=== PATIENT | female | born 1980 | race Caucasian/White ===

== ENCOUNTER 2018-05-02 10:53 | Outpatient (CLI) | payer BC ==
[2018-05-02 11:38] VITALS: BP 147/91
[2018-05-02 11:59] VITALS: BP 145/92
== END 2018-05-02 12:00 | disposition home or self-care (01) ==
LOC: WSo 10:53
PROVIDERS: ATTEND Obstetrics & Gynecology
DX: Z31.82 Encounter for Rh incompatibility status (principal)
CPT/HCPCS: 96372

== ENCOUNTER → 2018-06-05 | Outpatient (CLI) | payer BC ==
[~2018-06-05] MED LIST: DOCU100C37 PO; FLUO40CA12 PO; IBUP-1780 PO; OXYC-465 PO
== END ==
LOC: LABNPT 14:36
PROVIDERS: ATTEND Obstetrics & Gynecology
DX: O14.02 Mild to moderate pre-eclampsia, second trimester (principal)
CPT/HCPCS: 82570; 84156

== ENCOUNTER → 2018-06-07 | Outpatient (CLI) | payer BC, MEDICAID | LOC: LABNPT 10:53 | PROVIDERS: ATTEND Obstetrics & Gynecology | DX: O28.8 Other abnormal findings on antenatal screening of mother (principal) | CPT/HCPCS: 82570; 84156 ==

== ENCOUNTER → 2018-06-14 | Outpatient (CLI) | payer BC, MEDICAID | LOC: LABNPT 11:25 | PROVIDERS: ATTEND Obstetrics & Gynecology | DX: O28.8 Other abnormal findings on antenatal screening of mother (principal) | CPT/HCPCS: 82570; 84156 ==

== ENCOUNTER 2018-06-18 09:47 | Outpatient (CLI) | payer BC, MEDICAID ==
[~2018-06-18] VITALS: Ht 175.3 cm; Wt 124.3 kg
[2018-06-18 09:56] VITALS: BP 126/80
[2018-06-18] MEDS ORDERED: FLUO40CA12 PO (10:04)
[2018-06-23] MEDS ORDERED: OXYC-465 PO (08:08)
[2018-06-23] MEDS ORDERED: IBUP-1780 PO (08:08)
[2018-06-23] MEDS ORDERED: DOCU100C37 PO (08:08)
== END 2018-06-18 10:15 | disposition home or self-care (01) ==
LOC: PREOP 09:47
PROVIDERS: ATTEND Obstetrics & Gynecology
DX: Z01.818 Encounter for other preprocedural examination (principal); Z11.2 Encounter for screening for other bacterial diseases; O34.219 Maternal care for unspecified type scar from previous cesarean delivery
CPT/HCPCS: 87081

== ENCOUNTER → 2018-06-21 | Outpatient (CLI) | payer BC, MEDICAID | LOC: LABNPT 11:26 | PROVIDERS: ATTEND Obstetrics & Gynecology | DX: O28.8 Other abnormal findings on antenatal screening of mother (principal) | CPT/HCPCS: 82570; 84156 ==

== ENCOUNTER 2018-06-22 03:45 | Inpatient (IN) | payer BC, MEDICAID ==
[2018-06-22] VITALS (8 sets, daily range): BP systolic 114–156; BP diastolic 63–81
[~2018-06-22] VITALS: Ht 175.3 cm; Wt 127.5 kg
[~2018-06-22 03:45] MED LIST changes: -DOCU100C37 PO; -IBUP-1780 PO; -OXYC-465 PO
[2018-06-22] MEDS ORDERED: D5 LR IV SOLUTION 1,000 ML IV ONE ×2 (04:21→14:40)
[2018-06-22] MEDS ORDERED: D5 LR IV SOLUTION 1,000 ML IV SCH ×2 (04:30→08:06)
[2018-06-22] MEDS ORDERED: BETAMETHASONE ACE/NA PHOS 6 MG/ML (CELESTONE SOLUSPAN) ONE (07:48)
[2018-06-22] MEDS ORDERED: BETAMETHASONE ACE/NA PHOS 6 MG/ML (CELESTONE SOLUSPAN) IM SCH (08:15)
[2018-06-22] MEDS ORDERED: metroNIDAZOLE 500MG/100ML IVPB 100 ML IV ONE (08:15)
[2018-06-22] MEDS ORDERED: ceFAZolin INJECTION 2,000 MG in NS (IVPB) 50 ML IV ONE (08:15)
--- NOTE | 2018-06-22 08:15 | History & Physical ---
History and Physical Date Seen by Provider: Jun 22, 2018 Time Seen by Provider: 08:12 This patient is a 37-year-old 2 white female with a due date of July 15, 2018. She is currently 36-5/7 weeks gestation. She presented with complaint of progressively stronger contractions since midnight. She had demonstrated cervical change and some bloody show. heart rate pattern has been normal. GBS culture was negative. Patient is planning a repeat C- section on Monday due to PIH and gestational diabetes. Patient has been stable. Patient has been watched closely for her history of preeclampsia and she is in the process of developing preeclampsia as dust declared as of yet. Allergies are none Medications are vitamins levothyroxin and Prozac Medical social and surgical histories are per the antepartum record HEENT exam is normal Neck is supple no lymphadenopathy no thyromegaly Abdomen is gravid soft nontender nondistended Extreme show no clubbing cyanosis. There is no Homans sign. Pelvic exam shows a cervix now 2+ and Ms. dilated with some bloody show and cervix is thinned out about nursing home. The vertex presentation and membranes are intact. monitor shows contractions every 4-6 minutes with regularity. Laboratory Tests Test 06/22/18 04:15 Range/Units Urine Protein 30 H 6-12 MG/DL Urine Creatinine 192 H 30-125 MG/DL Urine Protein/Creatinine Ratio 0.16 CBC is pending Assessment and plan labor at 36-5/7 weeks gestation patient with 2 previous C-sections with gestational diabetes and with PIH. Plan is to continue observation at this point if she continues to contract. We will give a dose of betamethasone. This point as it does appear she will continue to contract and will be delivered. labor with previous Allergies and Home Medications Allergies Coded Allergies: No Known Drug Allergies (Unverified , 06/18/18) Home Medications Fluoxetine HCl 40 Mg Capsule, 40 MG PO DAILY, (Reported) Patient Home Medication List Home Medication List Reviewed: Yes MICHAEL MENJIVAR MD Jun 22, 2018 8:15 am
[2018-06-22 08:33] LABS: BASOPHILS % (AUTO) 0 % (0-10); EOSINOPHILS # (AUTO) 0.1 10^3/uL (0.0-0.3); EOSINOPHILS % (AUTO) 1 % (0-10); HEMATOCRIT 30 % (35-52); HEMOGLOBIN 10.6 G/DL (11.5-16.0); LYMPHOCYTES # (AUTO) 1.7 X 10^3 (1.0-4.0); LYMPHOCYTES % (AUTO) 14 % (12-44); MEAN CORPUSCULAR HEMOGLOBIN 33 PG (25-34); MEAN CORPUSCULAR HGB CONC 36 G/DL (32-36); MEAN CORPUSCULAR VOLUME 93 FL (80-99); MEAN PLATELET VOLUME 10.8 FL (7.4-10.4); MONOCYTES # (AUTO) 0.7 X 10^3 (0.0-1.0); MONOCYTES % (AUTO) 6 % (0-12); NEUTROPHILS # (AUTO) 10.1 X 10^3 (1.8-7.8); NEUTROPHILS % (AUTO) 80 % (42-75); PLATELET COUNT 259 10^3/uL (130-400); RED BLOOD COUNT 3.18 10^6/uL (4.35-5.85); RED CELL DISTRIBUTION WIDTH 13.6 % (10.0-14.5); WHITE BLOOD COUNT 12.6 10^3/uL (4.3-11.0)
--- OUTSIDE RECORDS SUMMARY | 2018-06-22 08:46 | XMS REPORT ---
Author Author Nidhi Villanueva [facility] Address [address] [place], [place] [id number] Care Team Providers Care Costume Design Teacher Name Role Phone Nidhi Villanueva PCP Unavailable Allergies and Adverse Reactions Name Reaction Notes NO KNOWN DRUG ALLERGIES Plan of Treatment Planned Activity Comments Planned Date Planned Time Plan/Goal URINE CULTURE/COLONY COUNT 09/16/2015 12:00 AM COMPREHEN METABOLIC PANEL 02/02/2015 12:00 AM LIPID PANEL 02/02/2015 12:00 AM ASSAY THYROID STIM HORMONE 02/02/2015 12:00 AM Medications Active Name Start Date Estimated Completion Date SIG Comments furosemide 20 mg oral tablet 02/11/2015 02/06/2016 TAKE 1 TABLET BY MOUTH EVERY DAY NEEDED FOR EDEMA fluoxetine 20 mg oral capsule 03/30/2015 take 1 capsule (20 mg) by oral route once daily for 30 days spironolactone 50 mg oral tablet 03/30/2015 take 1 tablet (50 mg) by oral route once daily for 30 days fluoxetine 20 mg oral capsule 07/29/2015 TAKE 1 CAPSULE BY MOUTH ONCE DAILY spironolactone 50 mg oral tablet 07/29/2015 TAKE 1 TABLET BY MOUTH ONCE DAILY Sprintec (28) 0.25-35 mg-mcg oral tablet 09/02/2015 08/03/2016 take 1 tablet by oral route once daily for 28 days Cipro 500 mg oral tablet 09/16/2015 09/26/2015 take 1 tablet (500 mg) by oral route every 12 hours for 10 days Diflucan 150 mg oral tablet 09/16/2015 take 1 tablet (150 mg) by oral route once Name Start Date Expiration Date SIG Comments Synthroid 88 mcg oral tablet 03/31/2011 04/30/2011 take 1 tablet (88 mcg) by oral route daily for 30 days Augmentin 875-125 mg oral tablet 08/14/2012 08/24/2012 take 1 tablet by oral route every 12 hours for 10 days hydrochlorothiazide 12.5 mg oral capsule 12/19/2012 01/18/2013 TAKE 1 CAPSULE BY MOUTH DAILY Flagyl 500 mg oral tablet 11/26/2013 12/03/2013 take 1 tablet (500 mg) by oral route 2 times per day for 7 days metformin 500 mg oral tablet extended release 24 hr 12/19/2013 12/14/2014 TAKE 2 TABLETS BY MOUTH EVERY NIGHT AT BEDTIME fluoxetine 20 mg oral capsule 07/28/2014 10/26/2014 take 1 capsule (20 mg) by oral route once daily for 30 days spironolactone 50 mg oral tablet 02/11/2015 03/13/2015 take 1 tablet (50 mg) by oral route once daily for 30 days levothyroxine 88 mcg oral tablet 06/02/2015 08/01/2015 TAKE 1 TABLET BY MOUTH ONCE DAILY Flagyl 500 mg oral tablet 09/08/2015 09/15/2015 take 1 tablet (500 mg) by oral route 2 times per day for 7 days Discontinued Name Start Date Discontinued Date SIG Comments ibuprofen 800 mg oral tablet 10/08/2012 prn metformin 500 mg oral tablet 02/15/2010 03/31/2011 take 1 tablet (500 mg) by oral route 2 times per day with morning and evening meals for 30 days lisinopril-hydrochlorothiazide 10-12.5 mg oral tablet 07/25/2011 12/12/2011 take 1 tablet by oral route once daily cough fluoxetine 20 mg oral capsule 07/29/2011 12/12/2011 take 1 capsule (20 mg) by oral route once daily in the morning never started loratadine 10 mg oral tablet 12/12/2011 10/08/2012 take 1 tablet (10 mg) by oral route once daily hydrochlorothiazide 12.5 mg oral tablet 12/12/2011 10/22/2012 take 1 tablet ( 12.5 mg) by oral route once daily nystatin 100,000 unit/gram topical cream 08/14/2012 11/20/2013 apply to the affected area(s) by topical route 3 times per day metformin Oral 1,000 mg Oral tablet 02/22/2013 take 1 tablet (1,000 mg) by oral route 1 x daily deleted multivitamin 11/20/2013 daily Lortab 5-500 mg oral tablet 12/12/2012 Keflex 500 mg oral capsule 10/17/2012 12/12/2012 take 1 capsule (500 mg) by oral route QID Prozac 20 mg oral capsule 05/02/2014 07/28/2014 take 1 capsule (20 mg) by oral route once daily taking generic metformin 500 mg oral tablet extended release 24 hr 03/30/2015 09/02/2015 TAKE 2 TABLETS BY MOUTH DAILY AT BEDTIME Problem List Description Status Onset Anemia Active Asthma Active Fatigue Active Glucose Intolerance Active Hypertension, Benign Essential Active Hypothyroidism, Acquired Active Murmur Active Neuropathy Active Obesity Active Vital Signs Date Time BP-Sys(mm[Hg] BP-Cheryl(mm[Hg]) HR(bpm) RR(rpm) Temp WT HT HC BMI BSA BMI Percentile O2 Sat(%) 09/16/2015 8:36:00 AM 120 mmHg 79 mmHg 75 bpm 20 rpm 97.4 F 261 lbs 100 % 09/02/2015 9:00:00 AM 122 mmHg 87 mmHg 73 bpm 97.1 F 257.5 lbs 69 in 38.0257 kg/m 2.3846 m 02/02/2015 10:29:00 AM 110 mmHg 80 mmHg 97 bpm 16 rpm 96.8 F 240.6 lbs 69 in 35.53 kg/m2 2.30 m2 97 % 05/02/2014 2:14:00 PM 72 bpm 20 rpm 97.4 F 228 lbs 69 in 33.6694 kg/m 2.2438 m 100 % 04/03/2014 11:07:00 AM 124 mmHg 90 mmHg 80 bpm 18 rpm 97.6 F 227.6 lbs 69 in 33.61 kg/m2 2.24 m2 99 % 02/21/2014 10:50:00 AM 121 mmHg 91 mmHg 69 bpm 20 rpm 97.6 F 225.6 lbs 69 in 33.315 kg/m 2.232 m 100 % 12/19/2013 8:12:00 AM 124 mmHg 89 mmHg 73 bpm 20 rpm 97.6 F 239.6 lbs 69 in 35.38 kg/m2 2.30 m2 99 % 11/20/2013 3:02:00 PM 133 mmHg 89 mmHg 80 bpm 97.7 F 238.375 lbs 69 in 35.2015 kg/m 2.2943 m 03/07/2013 2:23:00 PM 130 mmHg 60 mmHg 97 bpm 18 rpm 96.5 F 246 lbs 100 % 12/12/2012 1:40:00 PM 121 mmHg 83 mmHg 88 bpm 97.6 F 256.5 lbs 69 in 37.878 kg/m 2.3799 m 10/22/2012 3:13:00 PM 120 mmHg 80 mmHg 90 bpm 18 rpm 96.8 F 258.125 lbs 69 in 38.12 kg/m2 2.39 m2 98 % 10/17/2012 9:43:00 AM 120 mmHg 80 mmHg 84 bpm 18 rpm 97.8 F 258 lbs 69 in 38.0995 kg/m 2.3869 m 99 % 10/08/2012 1:23:00 PM 120 mmHg 80 mmHg 88 bpm 18 rpm 97.1 F 255.375 lbs 69 in 37.71 kg/m2 2.37 m2 99 % 10/01/2012 9:43:00 AM 142 mmHg 92 mmHg 86 bpm 97.8 F 258 lbs 69 in 38.0995 kg/m 2.3869 m 99 % 08/14/2012 2:31:00 PM 130 mmHg 80 mmHg 86 bpm 16 rpm 97.1 F 261.25 lbs 98 % 12/12/2011 1:27:00 PM 122 mmHg 68 mmHg 96 bpm 98 F 286 lbs 98 % 07/29/2011 8:45:00 AM 130 mmHg 82 mmHg 81 bpm 16 rpm 97.1 F 277 lbs 98 % 03/31/2011 1:44:00 PM 148 mmHg 90 mmHg 86 bpm 16 rpm 98.1 F 291 lbs 98 % 12/27/2010 11:32:00 AM 139 mmHg 95 mmHg 75 bpm 98 F 287 lbs 68 in 43.64 kg/m2 2.50 m2 02/15/2010 9:27:00 AM 122 mmHg 80 mmHg 79 bpm 16 rpm 98 F 267.125 lbs 69 in 39.4471 kg/m 2.4287 m 99 % Social History Name Description Comments Alcohol Current some day denies alcohol use Denies illicit substance abuse 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 Tobacco Never smoker History of Procedures Date Ordered Description Order Status 09/02/2015 12:00 AM SPECIMEN HANDLING OFFICE-LAB Reviewed 09/02/2015 12:00 AM CYTOPATH C/V THIN LAYER Returned 07/29/2011 12:00 AM ASSAY THYROID STIM HORMONE Reviewed 07/29/2011 12:00 AM Wrist Support Reviewed 09/16/2015 8:45 AM URINALYSIS AUTO W/O SCOPE Reviewed 08/17/2010 12:00 AM COMPREHEN METABOLIC PANEL Reviewed 08/17/2010 12:00 AM LIPID PANEL Reviewed 12/12/2012 12:00 AM CYTOPATH C/V MANUAL Returned 12/12/2012 12:00 AM SPECIMEN HANDLING OFFICE-LAB Reviewed 11/20/2013 12:00 AM CYTOPATH C/V MANUAL Returned 11/20/2013 12:00 AM SPECIMEN HANDLING OFFICE-LAB Reviewed 11/20/2013 12:00 AM CHLAMYDIA CULTURE Returned 11/20/2013 12:00 AM N.GONORRHOEAE DNA AMP PROB Returned 11/20/2013 12:00 AM TRICHOMONAS ASSAY W/OPTIC Returned 11/20/2013 12:00 AM URINE TEST Reviewed 02/21/2014 12:00 AM COMPLETE CBC W/AUTO DIFF WBC Returned 02/21/2014 12:00 AM COMPREHEN METABOLIC PANEL Returned 02/21/2014 12:00 AM LIPID PANEL Returned 02/21/2014 12:00 AM ASSAY THYROID STIM HORMONE Returned 02/21/2014 12:00 AM GLYCOSYLATED HEMOGLOBIN TEST Returned 02/21/2014 12:00 AM VITAMIN B-12 Returned 02/21/2014 12:00 AM ASSAY OF FREE THYROXINE Returned 02/21/2014 12:00 AM ASSAY OF FREE TESTOSTERONE Returned 02/21/2014 12:00 AM DEHYDROEPIANDROSTERONE Returned 02/21/2014 12:00 AM DEHYDROEPIANDROSTERONE Returned 12/27/2010 12:00 AM CYTOPATH C/V MANUAL Reviewed 12/27/2010 12:00 AM SPECIMEN HANDLING OFFICE-LAB Reviewed 12/27/2010 12:00 AM MAMMOGRAM BOTH BREASTS Reviewed 03/31/2011 12:00 AM COMPREHEN METABOLIC PANEL Reviewed 03/31/2011 12:00 AM ASSAY THYROID STIM HORMONE Reviewed 03/31/2011 12:00 AM Wrist Support Reviewed 02/02/2015 12:00 AM COMPLETE CBC W/AUTO DIFF WBC Returned Results Summary Data and Description Results 05/23/2007 12:00 AM LDLc SerPl-mCnc 99.0 mg/dLHDLc SerPl-mCnc 44.0 mg/dLTrigl SerPl-mCnc 106.0 mg/dL 02/18/2009 12:00 AM Pap Smear Negative 09/05/2009 12:00 AM Cholest Cry Stone Ql IR 136.0 %LDLc SerPl-mCnc 86.0 mg/ dLHDLc SerPl-mCnc 37.0 mg/dLTrigl SerPl-mCnc 66.0 mg/dLGlucose SerPl-mCnc 96.0 mg/dL 02/09/2010 12:00 AM Glucose SerPl-mCnc 100.0 mg/dLHIV1+2 Ab Ser Ql no risk Glucose SerPl-mCnc 100.0 mg/dL 02/09/2010 5:45 AM TSH 0.750 uIU/mLGLUCOSE 100.0 mg/dLSODIUM 139.0 mmol/ LPOTASSIUM 3.90 mmol/LCHLORIDE 110.0 mmol/LCO2 21.0 mmol/LBUN 12.0 mg/ dLCREATININE 0.80 mg/dLSGOT/AST 22.0 IU/LSGPT/ALT 32.0 IU/LALK PHOS 92.0 IU/ LTOTAL PROTEIN 6.70 g/dLALBUMIN 4.0 g/dLTOTAL BILI 0.50 mg/dLCALCIUM 9.30 mg/ dLeGFR >60 mL/min/1.73 m2 02/12/2010 12:23 PM Colonoscopy-Women and Men over 50 Declined 02/12/2010 12:32 PM Mammogram -Women over 40 Declined 02/12/2010 12:33 PM Depression Done HIV1+2 Ab Ser Ql no risk 02/12/2010 12:33 PM Dexa Bone Scan Refused Aspirin reccommended Refused 03/31/2011 2:25 PM TSH 0.740 uIU/mLGLUCOSE 92.0 mg/dLSODIUM 141.0 mmol/ LPOTASSIUM 4.0 mmol/LCHLORIDE 107.0 mmol/LCO2 26.0 mmol/LBUN 15.0 mg/ dLCREATININE 1.0 mg/dLSGOT/AST 13.0 IU/LSGPT/ALT 16.0 IU/LALK PHOS 96.0 IU/ LTOTAL PROTEIN 7.20 g/dLALBUMIN 4.10 g/dLTOTAL BILI 0.40 mg/dLCALCIUM 9.70 mg/ dLeGFR >60 mL/min/1.73 m2 07/29/2011 9:35 AM TSH 0.850 uIU/mL 10/15/2012 8:09 AM TEST UR NEGATIVE 02/24/2014 8:30 AM DHEA-Sulfate 265.60 ug/dLFree Testosterone(Direct) 0.20 pg/ mL 02/24/2014 8:35 AM WBC 8.9 RBC 4.19 HGB 13.20 g/dLHCT 38.70 %MCV 92.0 fLMCH 31.50 pgMCHC 34.10 g/dLRDW CV 12.40 %MPV 11.60 fLPLT 264 %NEUT 68.60 %%LYMP 25.40 %%MONO 4.70 %%EOS 0.90 %%BASO 0.40 %#NEUT 6.10 #LYMP 2.26 #MONO 0.42 #EOS 0.08 #BASO 0.04 Est Avg Glucose 96.8 mg/dLGLUCOSE 91.0 mg/dLSODIUM 141.0 mmol/ LPOTASSIUM 3.90 mmol/LCHLORIDE 105.0 mmol/LCO2 22.0 mmol/LBUN 9.0 mg/ dLCREATININE 0.90 mg/dLSGOT/AST 12.0 IU/LSGPT/ALT 15.0 IU/LALK PHOS 70.0 IU/ LTOTAL PROTEIN 6.60 g/dLALBUMIN 3.60 g/dLTOTAL BILI 0.40 mg/dLCALCIUM 9.0 mg/ dLeGFR 60 TRIGLYCERIDES 99.0 mg/dLCHOLESTEROL 145.0 mg/dLHDL 53.0 mg/dLLDL (CALC ) 72.0 mg/dLVITAMIN B12 302.0 pg/mLTSH 0.420 uIU/mL 09/16/2015 8:45 AM Clarity Ur cloudy Color Ur lt yellow Glucose Ur-sCnc negative Bilirub Ur Ql Strip negative Ketones Ur Ql Strip negative Sp Gr Ur Qn 1.020 Hgb Ur Ql Strip negative pH Ur-LsCnc 6 Prot Ur Ql Strip negative Urobilinogen Ur-mCnc 0.2 Nitrite Ur Ql Strip negative WBC Est Ur Ql Strip moderate History Of Immunizations Not available. History of Past Illness Name Date of Onset Comments Anemia Asthma as a child Gestational Diabetes Hypertension, Benign Essential Hypothyroidism, Acquired Murmur Neuropathy right arm Glucose Intolerance Obesity Fatigue Glucose Intolerance Feb 15 2010 9:42AM Hypertension, Benign Essential Feb 15 2010 9:42AM Hypothyroidism, Acquired Feb 15 2010 9:42AM Routine gynecological examination Dec 27 2010 11:34AM Breast Pain, Left Dec 27 2010 11:34AM Glucose Intolerance Mar 31 2011 1:45PM Hypertension, Benign Essential Mar 31 2011 1:45PM Hypothyroidism, Acquired Mar 31 2011 1:45PM Carpal Tunnel Syndrome Mar 31 2011 1:45PM Glucose Intolerance Jul 29 2011 8:43AM Hypertension, Benign Essential Jul 29 2011 8:43AM Hypothyroidism, Acquired Jul 29 2011 8:43AM Carpal Tunnel Syndrome Jul 29 2011 8:43AM Amenorrhea Aug 26 2011 4:46PM Glucose Intolerance Dec 12 2011 1:30PM Hypertension, Benign Essential Dec 12 2011 1:30PM Hypothyroidism, Acquired Dec 12 2011 1:30PM Carpal Tunnel Syndrome Dec 12 2011 1:30PM Rhinitis, Allergic Dec 12 2011 1:30PM Hypertension, Benign Essential Jan 18 2012 11:29AM Glucose Intolerance Aug 14 2012 2:33PM Hypertension, Benign Essential Aug 14 2012 2:33PM Hypothyroidism, Acquired Aug 14 2012 2:33PM Rhinitis, Allergic Aug 14 2012 2:33PM Lymph Nodes, Enlarged Aug 14 2012 2:33PM Solitary Enlarged Lymph Node Oct 01 2012 9:50AM Chronic Lymphadenitis Oct 08 2012 1:32PM Postoperative Follow-up Oct 17 2012 9:47AM Postoperative Follow-up Oct 22 2012 3:19PM Routine gynecological examination Dec 12 2012 1:41PM Glucose Intolerance Mar 07 2013 2:27PM Hypertension, Benign Essential Mar 07 2013 2:27PM Hypothyroidism, Acquired Mar 07 2013 2:27PM Rhinitis, Allergic Mar 07 2013 2:27PM Lymph Nodes, Enlarged Mar 07 2013 2:27PM Routine gynecological examination Nov 20 2013 3:15PM Contraception, Oral Prescription Nov 20 2013 3:15PM Vaginal Discharge Nov 20 2013 3:15PM Hyperthyroidism Dec 19 2013 8:19AM Edema Dec 19 2013 8:19AM Glucose Intolerance Dec 19 2013 8:19AM Hair Loss Feb 21 2014 10:52AM Fatigue Feb 21 2014 10:52AM Thyroid Disorder Feb 21 2014 10:52AM Glucose Intolerance Feb 21 2014 10:52AM Screening for Ischemic Heart Disease Feb 21 2014 10:52AM Glucose Intolerance Apr 03 2014 11:12AM Hypothyroidism, Acquired Apr 03 2014 11:12AM Fatigue Apr 03 2014 11:12AM Obesity Apr 03 2014 11:12AM Depression and anxiety Apr 03 2014 11:12AM Glucose Intolerance May 02 2014 2:15PM Hypothyroidism, Acquired May 02 2014 2:15PM Obesity May 02 2014 2:15PM Depression and anxiety May 02 2014 2:15PM Glucose Intolerance Feb 02 2015 10:32AM Hypothyroidism, Acquired Feb 02 2015 10:32AM Obesity Feb 02 2015 10:32AM Depression and anxiety Feb 02 2015 10:32AM Ischemic heart disease screen Feb 02 2015 10:32AM Fatigue Feb 02 2015 10:32AM Routine gynecological examination Sep 02 2015 9:05AM Contraceptive management Sep 02 2015 9:05AM Pelvic Pain Sep 02 2015 9:05AM Leukocytes in urine Sep 16 2015 8:38AM Flank pain Sep 16 2015 8:38AM Oral lesion Sep 16 2015 8:38AM Payers Insurance Name Company Name Plan Name Plan Number Policy Number Policy Group Number Start Date [employer] [place] [id number] December [employer] [place] [id number] Tuesday, 2008 History of Encounters Visit Date Visit Type Provider 09/16/2015 Office visit Nidhi Villanueva MAKE UP ARRANGER 09/02/2015 Office visit Anneliese Nobles MAKE UP ARRANGER 02/02/2015 Office visit Nidhi Villanueva MAKE UP ARRANGER 05/02/2014 Office visit Nidhi Villanueva MAKE UP ARRANGER 04/03/2014 Office visit Nidhi Villanueva MAKE UP ARRANGER 02/21/2014 Office visit Nidhi Villanueva MAKE UP ARRANGER 12/19/2013 Office visit MATTHIAS GARCIA FINANCIAL PROJECT MANAGER 11/20/2013 Office visit Anneliese Nobles MAKE UP ARRANGER 03/07/2013 Office visit Kristan Up MD 12/12/2012 Office visit Elo Wilkins MD 10/22/2012 Office visit Axel Wayne MD 10/17/2012 Office visit Axel Wayne MD 10/15/2012 [facility] Axel Wayne MD 10/08/2012 Office visit Axel Wayne MD 10/01/2012 Office visit Nidhi Villanueva MAKE UP ARRANGER 08/14/2012 Office visit Kristan Up MD 01/18/2012 Nurse visit Kristan Up MD 12/12/2011 Office visit Kristan Up MD 07/29/2011 Office visit Kristan Up MD 03/31/2011 Office visit Kristan Up MD 12/27/2010 Office visit Elo Wilkins MD 02/15/2010 Office visit Axel Brewer DO 08/14/2009 Laboratory Axel Brewer DO 08/14/2009 Office visit Axel Brewer DO 07/30/2009 Laboratory Axel Brewer DO 07/28/2009 Office visit Axel Brewer DO
--- OUTSIDE RECORDS SUMMARY | 2018-06-22 08:47 | XMS REPORT ---
Author Author Grace Issa [facility] Address [address] [place], [place] [id number] Care Team Providers Care Short Goods Drier Name Role Phone Grace Issa PCP Unavailable Allergies and Adverse Reactions Name Reaction Notes NO KNOWN DRUG ALLERGIES Plan of Treatment Planned Activity Comments Planned Date Planned Time Plan/Goal COMPREHEN METABOLIC PANEL 02/02/2015 12:00 AM LIPID PANEL 02/02/2015 12:00 AM Medications Active Name Start [...] oral route once daily for 28 days levothyroxine 88 mcg oral tablet 09/18/2015 TAKE 1 TABLET BY MOUTH ONCE DAILY Name Start Date Expiration Date SIG Comments [...] 2 times per day for 7 days Cipro 500 mg oral tablet 09/16/2015 09/26/2015 take 1 tablet (500 mg) by oral route every 12 hours for 10 days Discontinued Name Start Date Discontinued Date [...] 2 TABLETS BY MOUTH DAILY AT BEDTIME Diflucan 150 mg oral tablet 09/16/2015 10/07/2015 take 1 tablet (150 mg) by oral route once Problem List Description Status Onset Anemia Active Asthma Active Fatigue Active Glucose Intolerance Active Hypertension, Benign Essential Active Hypothyroidism, Acquired Active Murmur Active Neuropathy Active Obesity Active Vital Signs Date Time BP-Sys(mm[Hg] BP-Cheryl(mm[Hg]) HR(bpm) RR(rpm) Temp WT HT HC BMI BSA BMI Percentile O2 Sat(%) 10/07/2015 11:06:00 AM 125 mmHg 86 mmHg 58 bpm 98.2 F 262.25 lbs 69 in 38.73 kg/m2 2.41 m2 09/16/2015 8:36:00 AM 120 mmHg 79 mmHg 75 bpm 20 rpm 97.4 F 261 lbs 100 % 09/02/2015 9:00:00 AM 122 mmHg 87 mmHg 73 bpm 97.1 F 257.5 lbs 69 in 38.03 kg/m2 2.38 m2 02/02/2015 10:29:00 AM 110 mmHg 80 mmHg 97 bpm 16 rpm 96.8 F 240.6 lbs 69 in 35.53 kg/m 2.305 m 97 % 05/02/2014 2:14:00 PM 72 bpm 20 rpm 97.4 F 228 lbs 69 in 33.67 kg/m2 2.24 m2 100 % 04/03/2014 11:07:00 AM 124 mmHg 90 mmHg 80 bpm 18 rpm 97.6 F 227.6 lbs 69 in 33.6103 kg/m 2.2419 m 99 % 02/21/2014 10:50:00 AM 121 mmHg 91 mmHg 69 bpm 20 rpm 97.6 F 225.6 lbs 69 in 33.31 kg/m2 2.23 m2 100 % 12/19/2013 8:12:00 AM 124 mmHg 89 mmHg 73 bpm 20 rpm 97.6 F 239.6 lbs 69 in 35.3824 kg/m 2.3002 m 99 % 11/20/2013 3:02:00 PM 133 mmHg 89 mmHg 80 bpm 97.7 F 238.375 lbs 69 in 35.20 kg/m2 2.29 m2 03/07/2013 2:23:00 PM 130 mmHg 60 mmHg 97 bpm 18 rpm 96.5 F 246 lbs 100 % 12/12/2012 1:40:00 PM 121 mmHg 83 mmHg 88 bpm 97.6 F 256.5 lbs 69 in 37.88 kg/m2 2.38 m2 10/22/2012 3:13:00 PM 120 mmHg 80 mmHg 90 bpm 18 rpm 96.8 F 258.125 lbs 69 in 38.118 kg/m 2.3875 m 98 % 10/17/2012 9:43:00 AM 120 mmHg 80 mmHg 84 bpm 18 rpm 97.8 F 258 lbs 69 in 38.10 kg/m2 2.39 m2 99 % 10/08/2012 1:23:00 PM 120 mmHg 80 mmHg 88 bpm 18 rpm 97.1 F 255.375 lbs 69 in 37.7119 kg/m 2.3747 m 99 % 10/01/2012 9:43:00 AM 142 mmHg 92 mmHg 86 bpm 97.8 F 258 lbs 69 in 38.10 kg/m2 2.39 m2 99 % 08/14/2012 2:31:00 PM 130 mmHg [...] bpm 98 F 287 lbs 68 in 43.6378 kg/m 2.4992 m 02/15/2010 9:27:00 AM 122 mmHg 80 mmHg 79 bpm 16 rpm 98 F 267.125 lbs 69 in 39.45 kg/m2 2.43 m2 99 % Social History Name Description Comments [...] 8:45 AM URINALYSIS AUTO W/O SCOPE Reviewed 09/16/2015 12:00 AM URINE CULTURE/COLONY COUNT Returned 10/07/2015 11:13 AM URINE TEST Reviewed 08/17/2010 12:00 AM COMPREHEN METABOLIC PANEL [...] AM Wrist Support Reviewed 02/02/2015 12:00 AM ASSAY THYROID STIM HORMONE Returned 02/02/2015 12:00 AM COMPLETE CBC W/AUTO DIFF [...] negative WBC Est Ur Ql Strip moderate 09/16/2015 9:52 AM WBC 8.5 RBC 4.29 HGB 13.50 g/dLHCT 39.70 %MCV 93.0 fLMCH 31.50 pgMCHC 34.0 g/dLRDW CV 12.80 %MPV 10.90 fLPLT 268 %NEUT 64.0 %%LYMP 27.80 %%MONO 6.40 %%EOS 1.10 %%BASO 0.70 %#NEUT 5.45 #LYMP 2.36 #MONO 0.54 #EOS 0.09 # BASO 0.06 GLUCOSE 69.0 mg/dLSODIUM 139.0 mmol/LPOTASSIUM 4.30 mmol/LCHLORIDE 107.0 mmol/LCO2 26.0 mmol/LBUN 9.0 mg/dLCREATININE 0.90 mg/dLSGOT/AST 15.0 IU/ LSGPT/ALT 17.0 IU/LALK PHOS 91.0 IU/LTOTAL PROTEIN 7.0 g/dLALBUMIN 4.20 g/ dLTOTAL BILI 0.50 mg/dLCALCIUM 9.50 mg/dLeGFR >60 mL/min/1.73mTSH 1.10 uIU/mL 10/07/2015 11:13 AM Test, Urine negative History Of Immunizations Not available. History of [...] 8:38AM Oral lesion Sep 16 2015 8:38AM Encounter for test, result negative Oct 07 2015 11:13AM Payers Insurance Name Company Name Plan Name Plan Number Policy Number Policy Group Number Start Date Bcbs [facility] [id number] December [facility]cbs [facility] [id number] Tuesday, 2008 History of Encounters Visit Date Visit Type Provider 10/07/[address] Grace Issa MD 09/16/2015 Office visit Nidhi Villanueva MEDICAL RADIATION THERAPIST 09/02/2015 Office visit Anneliese Nobles MEDICAL RADIATION THERAPIST 02/02/2015 Office visit Nidhi Villanueva MEDICAL RADIATION THERAPIST 05/02/2014 Office visit Nidhi Villanueva MEDICAL RADIATION THERAPIST 04/03/2014 Office visit Nidhi Villanueva MEDICAL RADIATION THERAPIST 02/21/2014 Office visit Nidhi Villanueva MEDICAL RADIATION THERAPIST 12/19/2013 Office visit MATTHIAS GARCIA MERCHANT PATROLLER 11/20/2013 Office visit Anneliese Nobles MEDICAL RADIATION THERAPIST 03/07/2013 Office visit Kristan Up MD 12/12/2012 Office visit Elo Wilkins MD 10/22/2012 Office visit Axel Wayne MD 10/17/2012 Office visit Axel Wayne MD 10/15/2012 [facility] Axel Wayne MD 10/08/2012 Office visit Axel Wayne MD 10/01/2012 Office visit Nidhi Villanueva MEDICAL RADIATION THERAPIST 08/14/2012 Office visit Kristan Up MD 01/18/2012 [...]
--- OUTSIDE RECORDS SUMMARY | 2018-06-22 08:48 | XMS REPORT ---
Author Anneliese Pa [facility] Address [address] [place] [id number] Care Team Providers Care Care Center Manager Name Role Phone Anneliese Nobles PCP Unavailable Allergies and Adverse Reactions Name Reaction Notes NO KNOWN DRUG ALLERGIES Plan of Treatment Planned Activity Comments Planned Date Planned Time Plan/Goal COMPREHEN METABOLIC PANEL 02/02/2015 12:00 AM LIPID PANEL 02/02/2015 12:00 AM Medications Active Name Start Date Estimated Completion Date SIG Comments fluoxetine 20 mg oral capsule 03/30/2015 take [...] ONCE DAILY Flagyl 500 mg oral tablet 07/04/2016 07/11/2016 take 1 tablet (500 mg) by oral route 2 times per day for 7 days Diflucan 150 mg oral tablet 07/04/2016 07/06/2016 take 1 tablet (150 mg) by oral route times one after completion of Flagyl treatment. Name Start Date Expiration Date SIG Comments [...] oral route once daily for 30 days furosemide 20 mg oral tablet 02/11/2015 02/06/2016 TAKE 1 TABLET BY MOUTH EVERY DAY NEEDED FOR EDEMA levothyroxine 88 mcg oral tablet 06/02/2015 08/01/2015 [...] tablet (150 mg) by oral route once Diflucan 150 mg oral tablet 11/27/2015 07/04/2016 take 1 tablet (150 mg) by oral route once Problem List Description Status Onset Anemia Active Asthma Active Fatigue Active Glucose Intolerance Active Hypertension, Benign Essential Active Hypothyroidism, Acquired Active Murmur Active Neuropathy Active Obesity Active Vital Signs Date Time BP-Sys(mm[Hg] BP-Cheryl(mm[Hg]) HR(bpm) RR(rpm) Temp WT HT HC BMI BSA BMI Percentile O2 Sat(%) 07/04/2016 10:16:00 AM 145 mmHg 85 mmHg 74 bpm 98.1 F 262 lbs 69 in 38.69 kg/m2 2.41 m2 10/07/2015 11:06:00 AM 125 mmHg 86 mmHg 58 bpm 98.2 F 262.25 lbs 69 in 38.7272 kg/m 2.4065 m 09/16/2015 8:36:00 AM 120 mmHg 79 mmHg [...] Returned 10/07/2015 11:13 AM URINE TEST Reviewed 10/07/2015 12:00 AM BX/CURETT OF CERVIX W/SCOPE Returned 08/17/2010 12:00 AM COMPREHEN METABOLIC PANEL Reviewed [...] 2.26 #MONO 0.42 #EOS 0.08 #BASO 0.04 HGB A1C 5.0 %Est Avg Glucose 96.8 mg/dLGLUCOSE 91.0 mg/dLSODIUM 141.0 mmol/LPOTASSIUM 3.90 mmol/LCHLORIDE 105.0 mmol/LCO2 22.0 mmol/LBUN 9.0 [...] test, result negative Oct 07 2015 11:13AM Low grade squamous intraepithelial lesion (LGSIL) on Pap smear Oct 07 2015 11: 12AM Mild cervical dysplasia Oct 07 2015 11:12AM Bacterial Vaginitis Jul 04 2016 10:18AM Payers Insurance Name Company Name Plan Name Plan Number Policy Number Policy Group Number Start Date [employer] [place] [id number] December [employer] [place] [id number] Tuesday, 2008 History of Encounters Visit Date Visit Type Provider 07/04/2016 Office visit Anneliese Nobles OPERATIONS DEVELOPER 10/07/[address] Grace Issa MD 09/16/2015 Office visit Nidhi Villanueva OPERATIONS DEVELOPER 09/02/2015 Office visit Anneliese Nobles OPERATIONS DEVELOPER 02/02/2015 Office visit Nidhi Villanueva OPERATIONS DEVELOPER 05/02/2014 Office visit Nidhi Villanueva OPERATIONS DEVELOPER 04/03/2014 Office visit Nidhi Villanueva OPERATIONS DEVELOPER 02/21/2014 Office visit Nidhi Villanueva OPERATIONS DEVELOPER 12/19/2013 Office visit MATTHIAS HAMLIN 11/20/2013 Office visit Anneliese Nobles OPERATIONS DEVELOPER 03/07/2013 Office visit Kristan Up MD 12/12/2012 Office visit Elo Wilkins MD 10/22/2012 Office visit Axel Wayne MD 10/17/2012 Office visit Axel Wayne MD 10/15/2012 [facility] Axel Wayne MD 10/08/2012 Office visit Axel Wayne MD 10/01/2012 Office visit Nidhi Villanueva OPERATIONS DEVELOPER 08/14/2012 Office visit Kristan Up MD 01/18/2012 [...]
--- OUTSIDE RECORDS SUMMARY | 2018-06-22 08:48 | XMS REPORT ---
Author Author Grace Issa [facility] Address [address] [place] [id number] Care Team Providers Care Senior Corporate Strategy Manager Name Role Phone Grace Issa PCP Unavailable Kristan Up PreferredProvider Unavailable Allergies and Adverse Reactions Name Reaction Notes NO KNOWN DRUG ALLERGIES Plan of Treatment Not available. Medications Active Name Start Date Estimated Completion [...] TAKE 1 TABLET BY MOUTH ONCE DAILY levothyroxine 88 mcg oral tablet 09/18/2015 TAKE 1 TABLET BY MOUTH ONCE DAILY Adderall 10 mg oral tablet take 1 tablet (10 mg) by oral route once daily before breakfast Adderall 20 mg oral tablet take 1 tablet (20 mg) by oral route once daily before breakfast Name Start Date Expiration Date SIG Comments [...] oral route once daily for 28 days Flagyl 500 mg oral tablet 09/08/2015 09/15/2015 take 1 tablet (500 mg) by oral route 2 times per day for 7 days Cipro 500 mg oral tablet 09/16/2015 09/26/2015 take 1 tablet (500 mg) by oral route every 12 hours for 10 days Flagyl 500 mg oral tablet 07/04/2016 07/11/2016 take 1 tablet (500 mg) by oral route 2 times per day for 7 days Diflucan 150 mg oral tablet 07/04/2016 07/06/2016 take 1 tablet (150 mg) by oral route times one after completion of Flagyl treatment. Discontinued Name Start Date Discontinued Date SIG [...] HC BMI BSA BMI Percentile O2 Sat(%) 07/24/2017 11:02:00 AM 118 mmHg 78 mmHg 71 bpm 97.8 F 209.125 lbs 69 in 30.88 kg/m2 2.15 m2 07/04/2016 10:16:00 AM 145 mmHg 85 mmHg 74 bpm 98.1 F 262 lbs 69 in 38.6902 kg/m 2.4053 m 10/07/2015 11:06:00 AM 125 mmHg 86 mmHg [...] 09/02/2015 12:00 AM CYTOPATH C/V THIN LAYER Reviewed 07/29/2011 12:00 AM ASSAY THYROID STIM HORMONE Reviewed 07/29/2011 12:00 AM Wrist Support Reviewed 09/16/2015 8:45 AM URINALYSIS AUTO W/O SCOPE Reviewed 09/16/2015 12:00 AM URINE CULTURE/COLONY COUNT Reviewed 10/07/2015 11:13 AM URINE TEST Reviewed 10/07/2015 12:00 AM BX/CURETT OF CERVIX W/SCOPE Reviewed 07/24/2017 11:10 AM URINE TEST Reviewed 08/17/2010 12:00 AM COMPREHEN METABOLIC PANEL Reviewed 08/17/2010 12:00 AM LIPID PANEL Reviewed 12/12/2012 12:00 AM CYTOPATH C/V MANUAL Reviewed 12/12/2012 12:00 AM SPECIMEN HANDLING OFFICE-LAB Reviewed 11/20/2013 12:00 AM CYTOPATH C/V MANUAL Reviewed 11/20/2013 12:00 AM SPECIMEN HANDLING OFFICE-LAB Reviewed 11/20/2013 12:00 AM CHLAMYDIA CULTURE Reviewed 11/20/2013 12:00 AM N.GONORRHOEAE DNA AMP PROB Reviewed 11/20/2013 12:00 AM TRICHOMONAS ASSAY W/OPTIC Reviewed 11/20/2013 12:00 AM URINE TEST Reviewed 02/21/2014 12:00 AM COMPLETE CBC W/AUTO DIFF WBC Reviewed 02/21/2014 12:00 AM COMPREHEN METABOLIC PANEL Reviewed 02/21/2014 12:00 AM LIPID PANEL Reviewed 02/21/2014 12:00 AM ASSAY THYROID STIM HORMONE Reviewed 02/21/2014 12:00 AM GLYCOSYLATED HEMOGLOBIN TEST Reviewed 02/21/2014 12:00 AM VITAMIN B-12 Reviewed 02/21/2014 12:00 AM ASSAY OF FREE THYROXINE Reviewed 02/21/2014 12:00 AM ASSAY OF FREE TESTOSTERONE Reviewed 02/21/2014 12:00 AM DEHYDROEPIANDROSTERONE Reviewed 02/21/2014 12:00 AM DEHYDROEPIANDROSTERONE Reviewed 12/27/2010 12:00 AM CYTOPATH C/V MANUAL Reviewed 12/27/2010 12:00 AM SPECIMEN HANDLING OFFICE-LAB Reviewed 12/27/2010 12:00 AM MAMMOGRAM BOTH BREASTS Reviewed 03/31/2011 12:00 AM COMPREHEN METABOLIC PANEL Reviewed 03/31/2011 12:00 AM ASSAY THYROID STIM HORMONE Reviewed 03/31/2011 12:00 AM Wrist Support Reviewed 02/02/2015 12:00 AM COMPREHEN METABOLIC PANEL Reviewed 02/02/2015 12:00 AM LIPID PANEL Reviewed 02/02/2015 12:00 AM ASSAY THYROID STIM HORMONE Reviewed 02/02/2015 12:00 AM COMPLETE CBC W/AUTO DIFF WBC Reviewed Results Summary Date and Description Results 03/31/2011 2:25 PM TSH 0.740 uIU/mLGLUCOSE 92.0 mg/dLSODIUM 141.0 mmol/ LPOTASSIUM 4.0 mmol/LCHLORIDE 107.0 mmol/LCO2 26.0 mmol/LBUN 15.0 mg/ dLCREATININE 1.0 mg/dLSGOT/AST 13.0 IU/LSGPT/ALT 16.0 IU/LALK PHOS 96.0 IU/ LTOTAL PROTEIN 7.20 g/dLALBUMIN 4.10 g/dLTOTAL BILI 0.40 mg/dLCALCIUM 9.70 mg/ dLAGE 32 GFR NonAA 64 GFR AA 78 eGFR >60 mL/min/1.73 m2eGFR AA* >60 07/29/2011 9:35 AM TSH 0.850 uIU/mL 02/24/2014 8:30 AM DHEA-Sulfate 265.60 ug/dLDehydroepiandrosterone(DHEA) 183 Free Testosterone(Direct) 0.20 pg/mL 02/24/2014 8:35 AM WBC 8.9 RBC 4.19 HGB 13.20 g/dLHCT 38.70 %MCV 92.0 fLMCH 31.50 pgMCHC 34.10 g/dLRDW SD 42 RDW CV 12.40 %MPV 11.60 fLPLT 264 NRBC# 0.00 NRBC% 0.0 %NEUT 68.60 %%LYMP 25.40 %%MONO 4.70 %%EOS 0.90 %%BASO 0.40 %#NEUT 6.10 #LYMP 2.26 #MONO 0.42 #EOS 0.08 #BASO 0.04 MANUAL DIFF NOT IND HGB A1C 5.0 %Est Avg Glucose 96.8 mg/dLGLUCOSE 91.0 mg/dLSODIUM 141.0 mmol/LPOTASSIUM 3.90 mmol/LCHLORIDE 105.0 mmol/LCO2 22.0 mmol/LBUN 9.0 mg/dLCREATININE 0.90 mg/dLSGOT /AST 12.0 IU/LSGPT/ALT 15.0 IU/LALK PHOS 70.0 IU/LTOTAL PROTEIN 6.60 g/ dLALBUMIN 3.60 g/dLTOTAL BILI 0.40 mg/dLCALCIUM 9.0 mg/dLAGE 35 GFR NonAA 71 GFR AA 86 eGFR 60 eGFR AA* 60 TRIGLYCERIDES 99.0 mg/dLCHOLESTEROL 145.0 mg/ dLHDL 53.0 mg/dLTOT CHOL/HDL 2.7 LDL (CALC) 72.0 mg/dLVITAMIN B12 302.0 pg/ mLFREE T4 1.22 TSH 0.420 uIU/mL 09/16/2015 8:45 AM Clarity Ur [...] %MCV 93.0 fLMCH 31.50 pgMCHC 34.0 g/dLRDW SD 43 RDW CV 12.80 %MPV 10.90 fLPLT 268 NRBC# 0.00 NRBC% 0.0 %NEUT 64.0 %%LYMP 27.80 %%MONO 6.40 %%EOS 1.10 %%BASO 0.70 %#NEUT 5.45 #LYMP 2.36 #MONO 0.54 #EOS 0.09 #BASO 0.06 MANUAL DIFF NOT IND TSH 1.10 uIU /mL 10/07/2015 11:13 AM Test, Urine negative 07/24/2017 11:14 AM Test, Urine negative History Of Immunizations [...] Carpal Tunnel Syndrome Mar 31 2011 1:45PM ADHD Glucose Intolerance Jul 29 2011 8:43AM Hypertension, [...] 11:12AM Bacterial Vaginitis Jul 04 2016 10:18AM Encounter for test, result negative Jul 24 2017 11:10AM Payers Insurance Name Company Name Plan Name Plan Number Policy Number Policy Group Number Start Date [facility] [place] State Plan [facility] State Plan [id number] N/A [employer] [place] [id number] Tuesday, 2008 [employer] [place] [id number] December History of Encounters Visit Date Visit Type Provider 07/24/[address] Grace Issa MD 07/04/2016 Office visit Anneliese Nobles PUMP MACHINE OPERATOR 10/07/[address] Grace Issa MD 09/16/2015 Office visit Nidhi Villanueva PUMP MACHINE OPERATOR 09/02/2015 Office visit Anneliese Nobles PUMP MACHINE OPERATOR 02/02/2015 Office visit Nidhi Villanueva PUMP MACHINE OPERATOR 05/02/2014 Office visit Nidhi Villanueva PUMP MACHINE OPERATOR 04/03/2014 Office visit Nidhi Villanueva PUMP MACHINE OPERATOR 02/21/2014 Office visit Nidhi Villanueva PUMP MACHINE OPERATOR 12/19/2013 Office visit MATTHIASSAM GARCIA JBOSS ARCHITECT 11/20/2013 Office visit Anneliese MJose Nobles PUMP MACHINE OPERATOR 03/07/2013 Office visit Kristan Up MD 12/12/2012 Office visit Elo Wilkins MD 10/22/2012 Office visit Axel Wayne MD 10/17/2012 Office visit Axel Wayne MD 10/15/2012 [facility] Axel Wayne MD 10/08/2012 Office visit Axel Wayne MD 10/01/2012 Office visit Nidhi Villanueva PUMP MACHINE OPERATOR 08/14/2012 Office visit Kristan Up MD 01/18/2012 [...]
--- OUTSIDE RECORDS SUMMARY | 2018-06-22 08:49 | XMS REPORT ---
Author Author Grace Issa [facility] Address [address] [place], [place] [id number] Care Team Providers Care Electrician Name Role Phone Grace Issa PCP Unavailable [...] 12:00 AM BX/CURETT OF CERVIX W/SCOPE Reviewed 08/17/2010 12:00 AM COMPREHEN METABOLIC PANEL [...] Mild cervical dysplasia Oct 07 2015 11:12AM Payers Insurance Name Company Name Plan Name Plan Number Policy Number Policy Group Number Start Date [employer] [place] [id number] December [employer] [place] [id number] Tuesday, 2008 History of Encounters Visit Date Visit Type Provider 10/07/[address] Grace Issa MD 09/16/2015 Office visit Nidhi Villanueva MANAGER CRITICAL CARE UNIT 09/02/2015 Office visit Anneliese Nobles MANAGER CRITICAL CARE UNIT 02/02/2015 Office visit Nidhi Villanueva MANAGER CRITICAL CARE UNIT 05/02/2014 Office visit Nidhi Villanueva MANAGER CRITICAL CARE UNIT 04/03/2014 Office visit Nidhi Villanueva MANAGER CRITICAL CARE UNIT 02/21/2014 Office visit Nidhi Villanueva MANAGER CRITICAL CARE UNIT 12/19/2013 Office visit MATTHIAS GARCIA FINANCIAL SERVICES ASSOCIATE 11/20/2013 Office visit Anneliese Nobles MANAGER CRITICAL CARE UNIT 03/07/2013 Office visit Kristan Up MD 12/12/2012 Office visit Elo Wilkins MD 10/22/2012 Office visit Axel Wayne MD 10/17/2012 Office visit Axel Wayne MD 10/15/2012 [facility] Axel Wayne MD 10/08/2012 Office visit Axel Wayne MD 10/01/2012 Office visit Nidhi Villanueva MANAGER CRITICAL CARE UNIT 08/14/2012 Office visit Kristan Up MD 01/18/2012 [...]
--- OUTSIDE RECORDS SUMMARY | 2018-06-22 08:50 | XMS REPORT ---
Author Annelisee Pa [facility] Address [address] [place] [id number] Care Team Providers Care Cloth Finisher Name Role Phone Anneliese Nobles PCP Unavailable [...] Group Number Start Date [employer] [place] [id number] December [employer] [place] [id number] Tuesday, 2008 History of Encounters Visit Date Visit Type Provider 07/04/2016 Office visit Anneliese Nobles IN STORE BANKER 10/07/[address] Grace Issa MD 09/16/2015 Office visit Nidhi Villanueva IN STORE BANKER 09/02/2015 Office visit Anneliese Nobles IN STORE BANKER 02/02/2015 Office visit Nidhi Villanueva IN STORE BANKER 05/02/2014 Office visit Nidhi Villanueva IN STORE BANKER 04/03/2014 Office visit Nidhi Villanueva IN STORE BANKER 02/21/2014 Office visit Nidhi Villanueva IN STORE BANKER 12/19/2013 Office visit MATTHIAS COATESP 11/20/2013 Office visit Anneliese Nobles IN STORE BANKER 03/07/2013 Office visit Kristan Up MD 12/12/2012 Office visit Elo Wilkins MD 10/22/2012 Office visit Axel Wayne MD 10/17/2012 Office visit Axel Wayne MD 10/15/2012 [facility] Axel Wayne MD 10/08/2012 Office visit Axel Wayne MD 10/01/2012 Office visit Nidhi Villanueva IN STORE BANKER 08/14/2012 Office visit Kristan Up MD 01/18/2012 [...]
--- OUTSIDE RECORDS SUMMARY | 2018-06-22 08:50 | XMS REPORT ---
Author Author Grace Issa [facility] Address [address] [place] [id number] Care Team Providers Care Helmet Hat Sweatband Puncher Name Role Phone Grace Issa PCP Unavailable [...] test, result negative Jul 24 2017 11:10AM Pap smear abnormality of cervix with LGSIL Jul 24 2017 11:07AM Payers Insurance Name Company Name Plan Name Plan Number Policy Number Policy Group Number Start Date [employer] - [facility] [address] - [place] State Plan [employer] - [facility] State Plan [id number] N/A [employer] [place] [id number] Tuesday, 2008 [employer] [place] [id number] December History of Encounters Visit Date Visit Type Provider 07/24/[address] Grace Issa MD 07/04/2016 Office visit Anneliese Nobles SPARE FIXER 10/07/[address] Grace Issa MD 09/16/2015 Office visit Nidhi Villanueva SPARE FIXER 09/02/2015 Office visit Anneliese Nobles SPARE FIXER 02/02/2015 Office visit Nidhi Villanueva SPARE FIXER 05/02/2014 Office visit Nidhi Villanueva SPARE FIXER 04/03/2014 Office visit Nidhi Villanueva SPARE FIXER 02/21/2014 Office visit Nidhi Villanueva SPARE FIXER 12/19/2013 Office visit MATTHIAS GARCIA REAL ESTATE PHOTOGRAPHER 11/20/2013 Office visit Anneliese Nobles SPARE FIXER 03/07/2013 Office visit Kristan Up MD 12/12/2012 Office visit Elo Wilkins MD 10/22/2012 Office visit Axel Wayne MD 10/17/2012 Office visit Axel Wayne MD 10/15/2012 [facility] Axel Wayne MD 10/08/2012 Office visit Axle Wayne MD 10/01/2012 Office visit Nidhi Villanueva SPARE FIXER 08/14/2012 Office visit Kristan Up MD 01/18/2012 [...]
--- OUTSIDE RECORDS SUMMARY | 2018-06-22 08:51 | XMS REPORT ---
Author Author Grace Issa [facility] Address [address] [place] [id number] Care Team Providers Care Public Bath Attendant Name Role Phone Grace Issa PCP Unavailable [...] Policy Group Number Start Date [employer] - [facility] [place] State Plan [employer] - [facility] State Plan [id number] N/A [employer] [place] [id number] Tuesday, 2008 [employer] [place] [id number] December History of Encounters Visit Date Visit Type Provider 07/24/[address] Grace Issa MD 07/04/2016 Office visit Anneliese Nobles DAM TENDER 10/07/[address] Grace Issa MD 09/16/2015 Office visit Nidhi Villanueva DAM TENDER 09/02/2015 Office visit Anneliese Nobles DAM TENDER 02/02/2015 Office visit Nidhi Villanueva DAM TENDER 05/02/2014 Office visit Nidhi Villanueva DAM TENDER 04/03/2014 Office visit Nidhi Villanueva DAM TENDER 02/21/2014 Office visit Nidhi Villanueva DAM TENDER 12/19/2013 Office visit MATTHIAS GARCIA CASTING MACHINE OPERATOR 11/20/2013 Office visit Anneliese Nobles DAM TENDER 03/07/2013 Office visit Kristan Up MD 12/12/2012 Office visit Elo Wilkins MD 10/22/2012 Office visit Axel Wayne MD 10/17/2012 Office visit Axel Wayne MD 10/15/2012 [facility] Axel Wayne MD 10/08/2012 Office visit Axel Wayne MD 10/01/2012 Office visit Nidhi Villanueva DAM TENDER 08/14/2012 Office visit Kristan Up MD 01/18/2012 [...]
--- OUTSIDE RECORDS SUMMARY | 2018-06-22 08:54 | XMS REPORT ---
Author Anneliese Pa [facility] Address [address] [place], [place] [id number] Care Team Providers Care Maintenance Engineer Oil Field Name Role Phone Anneliese Nobles PCP Unavailable Allergies and Adverse Reactions Name Reaction Notes NO KNOWN DRUG ALLERGIES Plan of Treatment Planned Activity Comments Planned Date Planned Time Plan/Goal CYTOPATH C/V THIN LAYER 09/02/2015 12:00 AM COMPREHEN METABOLIC PANEL 02/02/2015 12:00 AM LIPID PANEL 02/02/2015 12:00 AM ASSAY THYROID STIM HORMONE 02/02/2015 12:00 AM COMPLETE CBC W/AUTO DIFF WBC 02/02/2015 12:00 AM Medications Active Name Start [...] oral route once daily for 28 days Name Start Date Expiration Date SIG Comments [...] TAKE 1 TABLET BY MOUTH ONCE DAILY Discontinued Name Start Date Discontinued Date SIG [...] HC BMI BSA BMI Percentile O2 Sat(%) 09/02/2015 9:00:00 AM 122 mmHg 87 mmHg [...] F 267.125 lbs 69 in 39.4471 kg/m 2.43 m2 99 % Social History Name Description Comments Alcohol Current some day denies alcohol use Denies illicit substance abuse 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 Tobacco Never smoker History of Procedures Date Ordered Description Order Status 07/29/2011 12:00 AM ASSAY THYROID STIM HORMONE Reviewed 07/29/2011 12:00 AM Wrist Support Reviewed 08/17/2010 12:00 AM COMPREHEN METABOLIC PANEL [...] Reviewed 03/31/2011 12:00 AM Wrist Support Reviewed Results Summary Data and Description Results 05/23/2007 [...] 72.0 mg/dLVITAMIN B12 302.0 pg/mLTSH 0.420 uIU/mL History Of Immunizations Not available. History of [...] 9:05AM Pelvic Pain Sep 02 2015 9:05AM Payers Insurance Name Company Name Plan Name Plan Number Policy Number Policy Group Number Start Date [facility]cbs B[facility] [id number] December [employer] [facility] [id number] Tuesday, 2008 History of Encounters Visit Date Visit Type Provider 09/02/2015 Office visit Anneliese Nobles LICENSED APPRAISER 02/02/2015 Office visit Nidhi Villanueva LICENSED APPRAISER 05/02/2014 Office visit Nidhi Villanueva LICENSED APPRAISER 04/03/2014 Office visit Nidhi Villanueva LICENSED APPRAISER 02/21/2014 Office visit Nidhi Villanueva LICENSED APPRAISER 12/19/2013 Office visit MATTHIAS HAMLIN 11/20/2013 Office visit Anneliese Nobles LICENSED APPRAISER 03/07/2013 Office visit Kristan Up MD 12/12/2012 Office visit Elo Wilkins MD 10/22/2012 Office visit Axel Wayne MD 10/17/2012 Office visit Axel Wayne MD 10/15/2012 Hospital Axel Wayne MD 10/08/2012 Office visit Axel Wayne MD 10/01/2012 Office visit Nidhi Villanueva APRN 08/14/2012 Office visit Kristan Up MD 01/18/2012 [...]
--- OUTSIDE RECORDS SUMMARY | 2018-06-22 08:56 | XMS REPORT ---
Author Author TOMI SHI [facility] eClinicalWorks Address Unknown Phone Unavailable Care Team Providers Care Medic Technician Name Role Phone TOMI SHI CP Unavailable Allergies No Known Allergies Problems Problem Type Condition Code Onset Dates Condition Status Problem Depression with anxiety F41.8 Active Problem Metabolic syndrome E88.81 Active Problem Fatigue R53.83 Active Problem Hypothyroidism E03.9 Active Problem Weight gain R63.5 Active Medications No Known Medications Results No Known Results Summary Purpose eClinicalWorks Submission
--- OUTSIDE RECORDS SUMMARY | 2018-06-22 08:56 | XMS REPORT ---
Author Author TOMI SHI Organization [facility] Address [address] [place] [address] Care Team Providers Care Western Philosophy Professor Name Role Phone TOMI SHI Unavailable PROBLEMS Type Condition ICD9-CM Code [id number] Code Onset Dates Condition Status SNOMED Code Problem Fatigue R53.83 Active 01660086 Problem Weight gain R63.5 Active 7464627 Problem Acute vaginitis N76.0 Active 697372949 Problem Cervical pain M54.2 Active 37151521 Problem Hypothyroidism E03.9 Active 27516171 Problem Depression with anxiety F41.8 Active 516035150 Problem ADD (attention deficit disorder) F98.8 Active 733442798 Problem Metabolic syndrome E88.81 Active 501484921 ALLERGIES No Information SOCIAL HISTORY Never Assessed PLAN OF CARE VITAL SIGNS MEDICATIONS Medication Instructions Dosage Frequency Start Date End Date Duration Status Adderall 20 mg Orally Once a day 1 tablet in the morning 24h 30 days Active Adderall 10 mg Orally Once a day at noon 1 tablet 30 days Active RESULTS No Results PROCEDURES No Known procedures IMMUNIZATIONS No Known Immunizations MEDICAL (GENERAL) HISTORY Type Description Date Medical History metabolic syndrome Medical History brachial palsey s/p injury Medical History Hypothyroidism Medical History depression Surgical History tendon transplant Lt arm Surgical History section x2 Surgical History wisdom teeth extraction Surgical History 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
--- OUTSIDE RECORDS SUMMARY | 2018-06-22 08:56 | XMS REPORT ---
Author Author TOMI SHI [facility] Address [address] [place] [address] Care Team Providers Care Data Management Analyst Name Role Phone TOMI SHI Unavailable PROBLEMS Type Condition ICD9-CM Code [id number] Code Onset Dates Condition Status SNOMED Code Problem Fatigue R53.83 Active 43884354 Problem Weight gain R63.5 Active 1278397 Problem Acute vaginitis N76.0 Active 341990110 Problem Cervical pain M54.2 Active 17347453 Problem Hypothyroidism E03.9 Active 42655795 Problem Depression with anxiety F41.8 Active 542895608 Problem ADD (attention deficit disorder) F98.8 Active 637767409 Problem Metabolic syndrome E88.81 Active 524830465 ALLERGIES Unknown Allergies SOCIAL HISTORY No smoking Hx information available PLAN OF CARE VITAL SIGNS MEDICATIONS Unknown Medications RESULTS No Results PROCEDURES No Known procedures IMMUNIZATIONS No Known Immunizations
--- OUTSIDE RECORDS SUMMARY | 2018-06-22 08:56 | XMS REPORT ---
Author Author TOMI SHI [facility] eClinicalWorks Address Unknown Phone Unavailable Care Team Providers Care Hydrant Setter Name Role Phone TOMI SHI Unavailable Allergies No Known Allergies Problems Problem Type Condition Code Onset Dates Condition Status Problem Depression with anxiety F41.8 Active Problem Metabolic syndrome E88.81 Active Problem Fatigue R53.83 Active Problem Hypothyroidism E03.9 Active Problem Weight gain R63.5 Active Medications Medication Code System Code Instructions Start Date End Date Status Dosage Furosemide [facility] [address]-32 20 mg Orally Once a day 1 tablet Results No Known Results Summary Purpose eClinicalWorks Submission
--- OUTSIDE RECORDS SUMMARY | 2018-06-22 08:56 | XMS REPORT ---
Author Author TOMI SHI [facility] Address [address] [place] [address] Care Team Providers Care Predator Control Trapper Name Role Phone TOMI SHI Unavailable PROBLEMS Type Condition ICD9-CM Code [id number] Code Onset Dates Condition Status SNOMED Code Problem Fatigue R53.83 Active 28587775 Problem Depression with anxiety F41.8 Active 472642253 Problem Weight gain R63.5 Active 0964213 Problem Metabolic syndrome E88.81 Active 187628458 Problem Hypothyroidism E03.9 Active 99501632 ALLERGIES Unknown Allergies SOCIAL HISTORY No smoking Hx information available PLAN OF CARE VITAL SIGNS MEDICATIONS Unknown Medications RESULTS No Results PROCEDURES No Known procedures IMMUNIZATIONS No Known Immunizations
--- OUTSIDE RECORDS SUMMARY | 2018-06-22 08:56 | XMS REPORT ---
Author Author TOMI SHI [facility] [place] Address [address] [place] [address] Care Team Providers Care District Plant Supervisor Name Role Phone TOMI SHI Unavailable PROBLEMS Type Condition ICD9-CM Code [id number]-[id number] Code Onset Dates Condition Status SNOMED Code Problem Fatigue R53.83 Active 93302603 Problem Weight gain R63.5 Active 5311139 Problem Acute vaginitis N76.0 Active 738757608 Problem Cervical pain M54.2 Active 08587449 Problem Hypothyroidism E03.9 Active 80593558 Problem Depression with anxiety F41.8 Active 000295558 Problem ADD (attention deficit disorder) F98.8 Active 247038345 Problem Metabolic syndrome E88.81 Active 902550808 ALLERGIES No Information ENCOUNTERS Encounter Location Date Diagnosis [facility] [address] [id number] [place] [address] Jun ADD (attention deficit disorder) F98.8 [facility] [place] [address] [id number] [place] [id number] May, [facility] [address] [id number] [place] [address] May [facility] [address] [id number] [place] [address] May [facility] [address] [id number] [place] [address] 18 May History of abnormal cervical Pap smear Z87.898 ; Encounter for well woman exam with routine gynecological exam Z01.419 and Screening for STD ( sexually transmitted disease) Z11.3 [facility] [address] [id number] [place] [address] 14 May ADD (attention deficit disorder) F98.8 and Acute vaginitis N76.0 [facility] [address] [id number] [place] [address] May ADD (attention deficit disorder) F98.8 [facility] [place] [address] [id number] [place] [address] March ADD (attention deficit disorder) F98.8 [facility] [place] [address] [id number] [place] [address] Feb Hypothyroidism E03.9 ; Metabolic syndrome E88.81 ; ADD (attention deficit disorder) F98.8 and Depression with anxiety F41.8 [facility] [place] [address] [id number] [place] [address] Jan ADD (attention deficit disorder) F98.8 ; Metabolic syndrome E88.81 ; Hypothyroidism E03.9 and Vaginal discharge N89.8 [facility] [place] [address] [id number] [place] [address] Nov ADD (attention deficit disorder) F98.8 ; Metabolic syndrome E88.81 and Hypothyroidism E03.9 [facility] [place] [address] [id number] [place] [address] Nov [facility] [place] [address] [id number] [place] [address] Oct Depression with anxiety F41.8 ; Hypothyroidism E03.9 ; Metabolic syndrome E88.81 ; Cervical pain M54.2 and ADD (attention deficit disorder) F98.8 [facility] [place] [address] [id number] [place] [address] Sep [facility] [place] [address] [id number] [place] [address] Jul [facility] [place] [address] [id number] [place] [address] Jul [facility] [place] [address] [id number] [place] [address] Feb [facility] [place] [address] [id number] [place] [address] Jan Metabolic syndrome E88.81 ; Weight gain R63.5 ; Depression with anxiety F41.8 and Hypothyroidism E03.9 [facility] [address] [id number] [place] [address] 16 Dec Fatigue R53.83 ; Depression with anxiety F41.8 ; Metabolic syndrome E88.81 ; Hypothyroidism E03.9 and Weight gain R63.5 IMMUNIZATIONS No Known Immunizations SOCIAL HISTORY Never Assessed REASON FOR VISIT Med refill PLAN OF CARE VITAL SIGNS MEDICATIONS Unknown Medications RESULTS No Results PROCEDURES No Known procedures INSTRUCTIONS MEDICATIONS ADMINISTERED No Known Medications MEDICAL (GENERAL) HISTORY Type Description Date Medical History metabolic syndrome Medical History brachial palsey s/p injury Medical History Hypothyroidism Medical History depression Surgical History tendon transplant Lt arm Surgical History section x2 Surgical History wisdom teeth extraction Surgical History 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
--- OUTSIDE RECORDS SUMMARY | 2018-06-22 08:56 | XMS REPORT ---
Author Author [facility]I SHI [facility] [place] Address [address] [place] [address] Care Team Providers Care Research Program Manager Name Role Phone TOMI SHI Unavailable PROBLEMS Type Condition ICD9-CM Code TSF77-YK Code Onset Dates Condition Status SNOMED Code Problem Fatigue R53.83 Active 55924677 Problem Weight gain R63.5 Active 9038790 Problem Acute vaginitis N76.0 Active 085482071 Problem Cervical pain M54.2 Active 57781130 Problem Hypothyroidism E03.9 Active 58283928 Problem Depression with anxiety F41.8 Active 050000350 Problem ADD (attention deficit disorder) F98.8 Active 001700516 Problem Metabolic syndrome E88.81 Active 624735282 ALLERGIES No Information ENCOUNTERS Encounter Location Date Diagnosis [facility] [address] [id number] [place] [address] Jun ADD (attention deficit disorder) F98.8 [facility] [place] [address] [id number] [place] [phone] May, [facility] [address] [id number] [place] [address] May [facility] [address] [id number] [place] [address] May [facility] [address] [id number] [place] [address] 18 May History of abnormal cervical Pap smear Z87.898 ; Encounter for well woman exam with routine gynecological exam Z01.419 and Screening for STD ( sexually transmitted disease) Z11.3 [facility] [address] [id number] [place] [address] 14 May ADD (attention deficit disorder) F98.8 and Acute vaginitis N76.0 [facility] [address] [id number] [place] [address] May ADD (attention deficit disorder) F98.8 [facility] [place] [address] [id number] [place] [address] March ADD (attention deficit disorder) F98.8 [facility] [place] [address] [id number] [place] [address] Feb Hypothyroidism E03.9 ; Metabolic syndrome E88.81 ; ADD (attention deficit disorder) F98.8 and Depression with anxiety F41.8 [facility] [place] [address] [id number] [place] [address] Jan ADD (attention deficit disorder) F98.8 ; Metabolic syndrome E88.81 ; Hypothyroidism E03.9 and Vaginal discharge N89.8 [facility] [place] [address] [id number] [place] [address] Nov ADD (attention deficit disorder) F98.8 ; Metabolic syndrome E88.81 and Hypothyroidism E03.9 [facility] [place] [address] [id number] [place] [address] Nov [facility] [place] [address] [id number] [place] [address] Oct Depression with anxiety F41.8 ; Hypothyroidism E03.9 ; Metabolic syndrome E88.81 ; Cervical pain M54.2 and ADD (attention deficit disorder) F98.8 [facility] [place] [address] [id number] [place] [address] Sep [facility] [place] [address] [id number] [place] [address] Jul [facility] [place] [address] [id number] [place] [address] Jul [facility] [place] [address] [id number] [place] [address] Feb [facility] [place] [address] [id number] [place] [address] Jan Metabolic syndrome E88.81 ; Weight gain R63.5 ; Depression with anxiety F41.8 and Hypothyroidism E03.9 [facility] [address] [id number] [place] [address] 16 Dec Fatigue R53.83 ; Depression with anxiety F41.8 ; Metabolic syndrome E88.81 ; Hypothyroidism E03.9 and Weight gain R63.5 IMMUNIZATIONS No Known Immunizations SOCIAL HISTORY Never Assessed REASON FOR VISIT PA for Adderal PLAN OF CARE VITAL SIGNS MEDICATIONS Unknown [...]
--- OUTSIDE RECORDS SUMMARY | 2018-06-22 08:56 | XMS REPORT ---
Author Author Anneliese Nobles [facility] Address [address] [place], [place] [address] Care Team Providers Care Water/Wastewater Project Engineer Name Role Phone Anneliese Nobles PCP Unavailable [...] 2 times per day for 7 days Name Start Date Expiration Date SIG [...] Ordered Description Order Status 09/02/2015 12:00 AM CYTOPATH C/V THIN LAYER [...] Number Policy Group Number [facility] Date [id number] December [facility]cbs [facility] [id number] Tuesday, 2008 History of Encounters Visit Date Visit Type Provider 09/02/2015 Office visit Anneliese Nobles POTTERY DECORATOR 02/02/2015 Office visit Nidhi Villanueva POTTERY DECORATOR 05/02/2014 Office visit Nidhi Villanueva POTTERY DECORATOR 04/03/2014 Office visit Nidhi Villanueva POTTERY DECORATOR 02/21/2014 Office visit Nidhi Villanueva POTTERY DECORATOR 12/19/2013 Office visit MATTHIAS HAMLIN 11/20/2013 Office visit Anneliese Nobles POTTERY DECORATOR 03/07/2013 Office visit Kristan Up MD 12/12/2012 Office visit Elo Wilkins MD 10/22/2012 Office visit Axel Wayne MD 10/17/2012 Office visit Axel Wayne MD 10/15/2012 [facility] Axel Wayne MD 10/08/2012 Office visit Axel Wayne MD 10/01/2012 Office visit Nidhi HurleyJose Villanueva POTTERY DECORATOR 08/14/2012 Office visit Kristan Up MD 01/18/2012 [...]
--- OUTSIDE RECORDS SUMMARY | 2018-06-22 08:56 | XMS REPORT ---
Author Author TOMI SHI [facility] [place] Address [address] [place] [address] Care Team Providers Care Product Marketing Specialist Name Role Phone TOMI SHI Unavailable PROBLEMS Type Condition ICD9-CM Code WNC57-BN Code Onset Dates Condition Status SNOMED Code Problem Fatigue R53.83 Active 86849816 Problem Depression with anxiety F41.8 Active 537867465 Problem Weight gain R63.5 Active 4622885 Problem Metabolic syndrome E88.81 Active 035192010 Problem Hypothyroidism E03.9 Active 71784965 ALLERGIES Unknown Allergies SOCIAL HISTORY No smoking Hx information available PLAN OF CARE VITAL SIGNS MEDICATIONS Medication Instructions Dosage Frequency Start Date End Date Duration Status Furosemide 20 mg Orally Once a day 1 tablet 24h 30 days Active RESULTS No Results PROCEDURES No Known procedures IMMUNIZATIONS No Known Immunizations
--- OUTSIDE RECORDS SUMMARY | 2018-06-22 08:56 | XMS REPORT ---
Author Author TOMI SHI [facility] [place] Address [address] [place] [address] Care Team Providers Care Turf Keeper Name Role Phone TOMI SHI Unavailable PROBLEMS Type Condition ICD9-CM Code BBK74-KT Code Onset Dates Condition Status SNOMED Code Problem Fatigue R53.83 Active 29184080 Problem Weight gain R63.5 Active 9686585 Problem Acute vaginitis N76.0 Active 492082762 Problem Cervical pain M54.2 Active 40661023 Problem Hypothyroidism E03.9 Active 70697936 Problem Depression with anxiety F41.8 Active 868624159 Problem ADD (attention deficit disorder) F98.8 Active 989227619 Problem Metabolic syndrome E88.81 Active 509434597 ALLERGIES No Known Allergies SOCIAL HISTORY Never Assessed PLAN OF CARE Activity Details Follow Up 4 Weeks Reason:F/u ADD VITAL SIGNS Height 67.0 in 2016-12-08 Weight 254.2 lbs 2016-12-08 Temperature 98.3 degrees Fahrenheit 2016-12-08 Heart Rate 72 bpm 2016-12-08 Respiratory Rate 18 2016-12-08 BMI 39.81 kg/m2 2016-12-08 Blood pressure systolic 128 mmHg 2016-12-08 Blood pressure diastolic 84 mmHg 2016-12-08 MEDICATIONS Medication Instructions Dosage Frequency Start Date End Date Duration Status Adderall 20 mg Orally Once a day 1 tablet in the morning 24h Nov, 30 days Active Levothyroxine Sodium 88 MCG Orally Once a day 1 tablet 24h Active Furosemide 20 mg Orally Once a day 1 tablet 24h Active Fluoxetine HCl 40 mg Orally Once a day 1 capsule in the morning 24h Dec Active Spironolactone 50 mg Orally Once a day 1 tablet 24h Active RESULTS No Results PROCEDURES No Known [...]
--- OUTSIDE RECORDS SUMMARY | 2018-06-22 08:57 | XMS REPORT ---
Author Author [facility]I SHI [facility] [place] Address [address] [place] [address] Care Team Providers Care Social Organization Professor Name Role Phone TOMI SHI Unavailable PROBLEMS Type Condition ICD9-CM Code UXA04-XF Code Onset Dates Condition Status SNOMED Code Problem Fatigue R53.83 Active 75990278 Problem Weight gain R63.5 Active 2115167 Problem Acute vaginitis N76.0 Active 808421665 Problem Cervical pain M54.2 Active 24920201 Problem Hypothyroidism E03.9 Active 39525273 Problem Depression with anxiety F41.8 Active 675682296 Problem ADD (attention deficit disorder) F98.8 Active 475079001 Problem Metabolic syndrome E88.81 Active 787152425 ALLERGIES No Known Allergies ENCOUNTERS Encounter Location Date Diagnosis [facility] [address] [id number] [place] [address] Jun ADD (attention deficit disorder) F98.8 [facility] [place] [address] [id number] [place] [phone] May, [facility] [address] [id number] [place] [address] May [facility] [address] [id number] [place] [address] May [facility] [address] [id number] [place] [address] 18 May History of abnormal cervical Pap smear Z87.898 ; Encounter for well woman exam with routine gynecological exam Z01.419 and Screening for STD ( sexually transmitted disease) Z11.3 [facility] [address] [id number] [place] [address] May ADD (attention deficit disorder) F98.8 and Acute vaginitis N76.0 [facility] [address] [id number] [place] [address] May ADD (attention deficit disorder) F98.8 [facility] [place] [address] [id number] [place] [address] March ADD (attention deficit disorder) F98.8 [facility] [place] [address] [id number] [place] [address] Feb Hypothyroidism E03.9 ; Metabolic syndrome E88.81 ; ADD (attention deficit disorder) F98.8 and Depression with anxiety F41.8 [facility] [place] [address] [id number] [place] [address] Jan ADD (attention deficit disorder) F98.8 ; Metabolic syndrome E88.81 ; Hypothyroidism E03.9 and Vaginal discharge N89.8 [facility] [place] [address] [id number] [place] [address] Nov ADD (attention deficit disorder) F98.8 ; Metabolic syndrome E88.81 and Hypothyroidism E03.9 [facility] [place] [address] [id number] [place] [address] Nov [facility] [place] [address] [id number] [place] [address] Oct Depression with anxiety F41.8 ; Hypothyroidism E03.9 ; Metabolic syndrome E88.81 ; Cervical pain M54.2 and ADD (attention deficit disorder) F98.8 [facility] [place] [address] [id number] [place] [address] Sep [facility] [place] [address] [id number] [place] [address] Jul [facility] [place] [address] [id number] [place] [address] Jul [facility] [place] [address] [id number] [place] [address] Feb [facility] [place] [address] [id number] [place] [address] Jan Metabolic syndrome E88.81 ; Weight gain R63.5 ; Depression with anxiety F41.8 and Hypothyroidism E03.[address] [facility] [place] [address] [facility] [id number] [place] [address] Dec Fatigue R53.83 ; Depression with anxiety F41.8 ; Metabolic syndrome E88.81 ; Hypothyroidism E03.9 and Weight gain R63.5 IMMUNIZATIONS No Known Immunizations SOCIAL HISTORY Never Assessed REASON FOR VISIT Annual physical (female), Pt wants STD check. BRIGIDA Reina PLAN OF CARE Activity Details Follow Up 1 Year Reason:WWE Pending Test ThinPrep Imaging Pap and HPV mRNA E6/E7 VITAL SIGNS Height 67.0 in 2017-05-30 Weight 209.1 lbs 2017-05-30 Temperature 98.2 degrees Fahrenheit 2017-05-30 Heart Rate 80 bpm 2017-05-30 Respiratory Rate 20 2017-05-30 BMI 32.75 kg/m2 2017-05-30 Blood pressure systolic 120 mmHg 2017-05-30 Blood pressure diastolic 82 mmHg 2017-05-30 MEDICATIONS Medication Instructions Dosage Frequency Start Date End Date Duration Status Spironolactone 50 mg Orally Once a day 1 tablet 24h Active Levothyroxine Sodium 88 MCG Orally Once a day 1 tablet 24h Active Furosemide 20 mg Orally Once a day 1 tablet 24h Active Fluoxetine HCl 40 mg Orally Once a day 1 capsule in the morning 24h Dec Active Flagyl 500 mg Orally 2 times a day 1 tablet 12h Jan, 07 days Active Adderall 20 mg Orally Once a day 1 tablet in the morning 24h 28 days Active Adderall 10 mg Orally Once a day at noon 1 tablet 28 days Active RESULTS No Results PROCEDURES Procedure Date Ordered Result Body Site SPECIMEN HANDLING May 30, 2017 KESHAV VAG, DNA, DIR PROBE May 30, 2017 LAB NOT BILLED BY [facility] May 30, 2017 INSTRUCTIONS MEDICATIONS ADMINISTERED No Known Medications MEDICAL [...]
--- OUTSIDE RECORDS SUMMARY | 2018-06-22 08:57 | XMS REPORT ---
Author Author T[facility]I SHI [facility] [place] Address [address] [place] [address] Care Team Providers Care Receiving Distribution Station Operator Name Role Phone TOMI SHI Unavailable PROBLEMS Type Condition ICD9-CM Code OUJ33-AA Code Onset Dates Condition Status SNOMED Code Problem Fatigue R53.83 Active 55905382 Problem Weight gain R63.5 Active 0227402 Problem Acute vaginitis N76.0 Active 619146343 Problem Cervical pain M54.2 Active 49014311 Problem Hypothyroidism E03.9 Active 76740644 Problem Depression with anxiety F41.8 Active 131041306 Problem ADD (attention deficit disorder) F98.8 Active 032559533 Problem Metabolic syndrome E88.81 Active 914780090 ALLERGIES No Information ENCOUNTERS Encounter Location Date Diagnosis [facility] [address] [id number] [place] [address] Jun ADD (attention deficit disorder) F98.8 [facility] [place] [address] [id number] [place] [address] May, [facility] [address] [id number] [place] [address] May [facility] [address] [id number] [place] [address] May [facility] [address] [id number] [place] [address] 18 May History of abnormal cervical Pap smear Z87.898 ; Encounter for well woman exam with routine gynecological exam Z01.419 and Screening for STD ( sexually transmitted disease) Z11.3 [facility] [address] [id number] [place] [address] May ADD (attention deficit disorder) F98.8 and Acute vaginitis N76.0 [facility] [address] [id number] [place] [address] May ADD (attention deficit disorder) F98.8 [facility] [place] [address] [id number] [place] [address] March ADD (attention deficit disorder) F98.8 [facility] [place] [address] [id number] [place] [address] Feb Hypothyroidism E03.9 ; Metabolic syndrome E88.81 ; ADD (attention deficit disorder) F98.8 and Depression with anxiety F41.8 [facility] [place] [address] [id number] [place] [address] Jan ADD (attention deficit disorder) F98.8 ; Metabolic syndrome E88.81 ; Hypothyroidism E03.9 and Vaginal discharge N89.8 [facility] [place] [address] [id number] [place] [address] Nov ADD (attention deficit disorder) F98.8 ; Metabolic syndrome E88.81 and Hypothyroidism E03.9 [facility] [place] [address] [id number] [place] [address] Nov [facility] [place] [address] [id number] [place] [address] Oct Depression with anxiety F41.8 ; Hypothyroidism E03.9 ; Metabolic syndrome E88.81 ; Cervical pain M54.2 and ADD (attention deficit disorder) F98.8 [facility] [place] [address] [id number] [place] [address] Sep [facility] [place] [address] [id number] [place] [address] Jul [facility] [place] [address] [id number] [place] [address] Jul [facility] [place] [address] [id number] [place] [address] Feb [facility] [place] [address] [id number] [place] [address] Jan Weight gain R63.5 ; Metabolic syndrome E88.81 ; Depression with anxiety F41.8 and Hypothyroidism E03.9 [facility] [address] [place] [id number] [place] [address] 16 Dec Fatigue R53.83 ; Depression with anxiety F41.8 ; Metabolic syndrome E88.81 ; Hypothyroidism E03.9 and Weight gain R63.5 IMMUNIZATIONS No Known Immunizations SOCIAL HISTORY Never Assessed REASON FOR VISIT med refill adderall PLAN OF CARE VITAL SIGNS MEDICATIONS Medication Instructions Dosage Frequency Start Date End Date Duration Status Adderall 20 mg Orally Once a day 1 tablet in the morning 24h 28 days Active Adderall 10 mg Orally Once a day at noon 1 tablet 28 days Active RESULTS No Results PROCEDURES No [...]
--- OUTSIDE RECORDS SUMMARY | 2018-06-22 08:57 | XMS REPORT ---
Author Author [facility]I [facility] [place] Address [address] [place] [address] Care Team Providers Care Spanisher Name Role Phone TOMI SHI Unavailable PROBLEMS Type Condition ICD9-CM Code TBI84-PJ Code Onset Dates Condition Status SNOMED Code Problem Fatigue R53.83 Active 79453659 Problem Weight gain R63.5 Active 7245901 Problem Acute vaginitis N76.0 Active 958946760 Problem Cervical pain M54.2 Active 83720102 Problem Hypothyroidism E03.9 Active 79621594 Problem Depression with anxiety F41.8 Active 259754619 Problem ADD (attention deficit disorder) F98.8 Active 178174489 Problem Metabolic syndrome E88.81 Active 701462309 ALLERGIES No Information ENCOUNTERS Encounter Location Date Diagnosis [facility] [address] [id number] [place] [address] Jun ADD (attention deficit disorder) F98.8 [facility] [place] [address] [id number] [place] [id number] May, [facility] [address] [id number] [place] [address] May [facility] [address] [id number] [place] [address] May [facility] [address] [id number] [place] [address] 18 May History of abnormal cervical Pap smear Z87.898 ; Encounter for well woman exam with routine gynecological exam Z01.419 and Screening for STD ( sexually transmitted disease) Z11.3 [facility] [address] [id number] [place] [address] 14 May ADD (attention deficit disorder) F98.8 and Acute vaginitis N76.0 [facility] [address] [id number] [place] [address] May ADD (attention deficit disorder) F98.8 [facility] [place] [address] [id number] [place] [address] March ADD (attention deficit disorder) F98.8 [facility] [place] [address] [id number] [place] [address] Feb Hypothyroidism E03.9 ; Metabolic syndrome E88.81 ; ADD (attention deficit disorder) F98.8 and Depression with anxiety F41.8 [facility] [place] [address] [id number] [place] [address] Jan ADD (attention deficit disorder) F98.8 ; Metabolic syndrome E88.81 ; Hypothyroidism E03.9 and Vaginal discharge N89.8 [facility] [place] [address] [id number] [place] [address] Nov ADD (attention deficit disorder) F98.8 ; Metabolic syndrome E88.81 and Hypothyroidism E03.9 [facility] [place] [address] [id number] [place] [address] Nov [facility] [place] [address] [id number] [place] [address] Oct Depression with anxiety F41.8 ; Hypothyroidism E03.9 ; Metabolic syndrome E88.81 ; Cervical pain M54.2 and ADD (attention deficit disorder) F98.8 [facility] [place] [address] [id number] [place] [address] Sep [facility] [place] [address] [id number] [place] [address] Jul [facility] [place] [address] [id number] [place] [address] Jul [facility] [place] [address] [id number] [place] [address] Feb [facility] [place] [address] [id number] [place] [address] Jan Metabolic syndrome E88.81 ; Weight gain R63.5 ; Depression with anxiety F41.8 and Hypothyroidism E03.9 [facility] [address] [id number] [place] [address] 16 Dec Fatigue R53.83 ; Depression with anxiety F41.8 ; Metabolic syndrome E88.81 ; Hypothyroidism E03.9 and Weight gain R63.5 IMMUNIZATIONS No Known Immunizations SOCIAL HISTORY Never Assessed REASON FOR VISIT phone call PLAN OF CARE VITAL SIGNS MEDICATIONS Unknown [...]
--- OUTSIDE RECORDS SUMMARY | 2018-06-22 08:57 | XMS REPORT | Continuity of Care Document ---
Author Author [facility] Organization [facility] Address Unknown Phone Unavailable Allergies There is no data. Medications There is no data. Problems Date Dx Coded Attending Type Code Diagnosis Diagnosed By 05/02/2018 MICHAEL MENJIVAR MD, Ot Z31.82 ENCOUNTER FOR RH INCOMPATIBILITY STATUS 05/03/2018 MICHAEL MENJIVAR MD, Ot Z31.82 ENCOUNTER FOR RH INCOMPATIBILITY STATUS 06/06/2018 MICHAEL MENJIVAR MD, Ot O14.02 MILD TO MODERATE PRE-ECLAMPSIA, SECOND T 06/11/2018 MICHAEL MENJIVAR MD, Ot O28.8 OTHER ABNORMAL FINDINGS ON SCR Procedures There is no data. Results Test Result Range RH IMMUNE GLOBULIN RHOPHYLAC - 05/02/18 10:59 RH IMMUNE GLOBULIN RHOPHYLAC PRSMD TRFSD 05/02/18 1131 NRG [id number] - 05/02/18 10:59 [id number] 300ug NRG Lot number - 05/02/18 10:59 Lot number [id number] NRG cell screen - 05/02/18 10:59 cell screen 10/30/19 NRG Urine protein/creatinine mass ratio - 06/05/18 14:00 Urine protein measurement (mass/volume) 25 mg/dL 6-12 Urine creatinine measurement (mass/volume) 193 mg/dL 30- 125 Urine protein/creatinine mass ratio 0.13 NRG Urine protein/creatinine mass ratio - 06/07/18 10:53 Urine protein measurement (mass/volume) 21 mg/dL 6-12 Urine creatinine measurement (mass/volume) 206 mg/dL 30- 125 Urine protein/creatinine mass ratio 0.10 NRG Urine protein/creatinine mass ratio - 06/14/18 11:27 Urine protein measurement (mass/volume) 25 mg/dL 6-12 Urine creatinine measurement (mass/volume) 156 mg/dL 30- 125 Urine protein/creatinine mass ratio 0.16 NRG Methicillin resistant Staphylococcus aureus (MRSA) screening culture - 10:10 Methicillin resistant Staphylococcus aureus (MRSA) screening culture NEG NRG Urine protein/creatinine mass ratio - 06/21/18 11:00 Urine protein measurement (mass/volume) 22 mg/dL 6-12 Urine creatinine measurement (mass/volume) 142 mg/dL 30- 125 Urine protein/creatinine mass ratio 0.15 NRG Encounters ACCT No. Visit Date/Time Discharge Status Pt. Type Provider Facility Loc./Unit Complaint [id number] 07/24/2017 11:50:44 07/24/2017 23:59:59 CLS Outpatient Grace Issa [id number] 07/04/2016 11:08:06 07/04/2016 23:59:59 CLS Outpatient Anneliese Nobles [id number] 10/07/2015 11:47:04 10/07/2015 23:59:59 CLS Outpatient Grace Issa [id number] 09/16/2015 09:30:25 09/16/2015 23:59:59 CLS Outpatient Nidhi Villanueva [id number] 09/02/2015 09:52:19 09/02/2015 23:59:59 CLS Outpatient Anneliese Nobles [id number] 05/02/2014 14:59:48 05/02/2014 23:59:59 CLS Outpatient Nidhi Villanueva [id number] 04/03/2014 12:01:56 04/03/2014 23:59:59 CLS Outpatient Nidhi Villanueva [id number] 02/21/2014 11:43:24 02/21/2014 23:59:59 CLS Outpatient Nidhi Villanueva [id number] 12/19/2013 09:07:05 12/19/2013 23:59:59 CLS Outpatient RADHAMATTHIAS Vasquez [id number] 11/20/2013 15:44:58 11/20/2013 23:59:59 CLS Outpatient Anneliese Nobles [id number] 06/07/2018 10:53:00 06/07/2018 23:59:59 CLS Outpatient MICHAEL MENJIVAR MD [facility] [id number] 06/05/2018 14:36:00 06/05/2018 23:59:59 CLS Outpatient MICHAEL MENJIVAR MD [facility] [id number] 05/02/2018 10:53:00 05/02/2018 12:00:00 DIS Outpatient MICHAEL MENJIVAR MD [facility] WSo RH NEGATIVE [id number] 06/25/2018 12:30:00 PEN Preadmit TIARA YU, MICHAEL Virk PREVIOUS [id number] 06/21/2018 11:48:00 Document Registration [id number] 2018 12:20:00 Document Registration [id number] 06/14/2018 11:43:00 Document Registration
--- OUTSIDE RECORDS SUMMARY | 2018-06-22 08:57 | XMS REPORT ---
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 Role Phone TOMI SHI Unavailable PROBLEMS Type Condition ICD9-CM Code KDS39-AV Code Onset Dates Condition Status SNOMED Code Problem Fatigue R53.83 Active 12649739 Problem Weight gain R63.5 Active 2476949 Problem Acute vaginitis N76.0 Active 574460929 Problem Cervical pain M54.2 Active 27013839 Problem Hypothyroidism E03.9 Active 14574314 Problem Depression with anxiety F41.8 Active 077213852 Problem ADD (attention deficit disorder) F98.8 Active 628789192 Problem Metabolic syndrome E88.81 Active 996952039 ALLERGIES No Known Allergies ENCOUNTERS Encounter Location Date Diagnosis [facility] [address] [id number] [place] [address] Jun ADD (attention deficit disorder) F98.8 [facility] [address] [id number] [place] [id number] May, [facility] [address] [id number] [place] [address] May [facility] [address] [id number] [place] [address] May [facility] [address] [id number] [place] [address] 18 May History of abnormal cervical Pap smear Z87.898 ; Encounter for well woman exam with routine gynecological exam Z01.419 and Screening for STD ( sexually transmitted disease) Z11.3 [facility] [address] [id number] [place] [address] May ADD (attention deficit disorder) F98.8 and Acute vaginitis N76.0 [facility] [address] [id number] [place] [address] May ADD (attention deficit disorder) F98.8 [facility] [place] [address] [id number] [place] [address] March ADD (attention deficit disorder) F98.8 [facility] [place] [address] [id number] [place] [address] Feb Hypothyroidism E03.9 ; Metabolic syndrome E88.81 ; ADD (attention deficit disorder) F98.8 and Depression with anxiety F41.8 [facility] [place] [address] [id number] [place] [address] Jan ADD (attention deficit disorder) F98.8 ; Metabolic syndrome E88.81 ; Hypothyroidism E03.9 and Vaginal discharge N89.8 [facility] [place] [address] [id number] [place] [address] Nov ADD (attention deficit disorder) F98.8 ; Metabolic syndrome E88.81 and Hypothyroidism E03.9 [facility] [place] [address] [id number] [place] [address] Nov [facility] [place] [address] [id number] [place] [address] Oct Depression with anxiety F41.8 ; Hypothyroidism E03.9 ; Metabolic syndrome E88.81 ; Cervical pain M54.2 and ADD (attention deficit disorder) F98.8 [facility] [place] [address] [id number] [place] [address] Sep [facility] [place] [address] [id number] [place] [address] Jul [facility] [place] [address] [id number] [place] [address] Jul [facility] [place] [address] [id number] [place] [address] Feb [facility] [place] [address] [id number] [place] [address] Jan Weight gain R63.5 ; Metabolic syndrome E88.81 ; Depression with anxiety F41.8 and Hypothyroidism E03.9 [facility] [address] [facility] [id number] [place] [address] Dec Fatigue R53.83 ; Depression with anxiety F41.8 ; Metabolic syndrome E88.81 ; Hypothyroidism E03.9 and Weight gain R63.5 IMMUNIZATIONS No Known Immunizations SOCIAL HISTORY Never Assessed REASON FOR VISIT ADHD follow up, Pt needs medication refill. Adderall. Latosha MA PLAN OF CARE Activity Details Follow Up 3 Months Reason:ADD f/u VITAL SIGNS Height 67.0 in 2017-05-26 Weight 211.4 lbs 2017-05-26 Temperature 98.5 degrees Fahrenheit 2017-05-26 Heart Rate 76 bpm 2017-05-26 Respiratory Rate 20 2017-05-26 BMI 33.11 kg/m2 2017-05-26 Blood pressure systolic 122 mmHg 2017-05-26 Blood pressure diastolic 82 mmHg 2017-05-26 MEDICATIONS Medication Instructions Dosage Frequency Start Date End Date Duration Status Adderall 10 mg Orally Once a day at noon 1 tablet 28 days Active Flagyl 500 mg Orally 2 times a day 1 tablet 12h Jan, 07 days Active Spironolactone 50 mg Orally Once a day 1 tablet 24h Active Furosemide 20 mg Orally Once a day 1 tablet 24h Active Levothyroxine Sodium 88 MCG Orally Once a day 1 tablet 24h Active Fluoxetine HCl 40 mg Orally Once a day 1 capsule in the morning 24h Dec Active Adderall 20 mg Orally Once a day 1 tablet in the morning 24h 28 days Active RESULTS No Results PROCEDURES [...]
[2018-06-22] MEDS ORDERED: ceFAZolin 2 GM IV Premixed 50 ML ONE (11:19)
[2018-06-22] MEDS ORDERED: metroNIDAZOLE 500MG/100ML IVPB 100 ML ONE (11:19)
[2018-06-22] MEDS ORDERED: METOCLOPRAMIDE INJ 10 MG/2 ML (REGLAN) ONE (11:19)
[2018-06-22] MEDS ORDERED: raNItidine 50 MG/2 ML INJ (ZANTAC) ONE (11:19)
[2018-06-22] MEDS ORDERED: CITRIC ACID/SOB CIT (BICITRA) 30 ML UDC ONE (11:19)
[2018-06-22] MEDS ORDERED: fentaNYL INJECTION 100 MCG/2 ML AMP ONE (11:44)
[2018-06-22] MEDS ORDERED: BUPIVACAINE 0.5% 30 ML (SENSORCAINE) VIAL ONE (11:44)
[2018-06-22] MEDS ORDERED: OXYTOCIN/NORMAL SALINE 500 ML IV ONE ×2 (11:44→11:53)
--- NOTE | 2018-06-22 11:52 | Progress Note-Standard ---
Standard Progress Note Progress Notes/Assess & Plan Date Seen by Provider: Jun 22, 2018 Time Seen by Provider: 11:49 Progress/Assessment & Plan This patient has continued to contract and now with more vigor and regularity. She complains of pressure and pain in the back and pelvis and of an intermittent tearing sensation above the pubic bone. She has continued to have spotting and bleeding. Decision made to proceed now with repeat delivery, due to labor/previous /uncertainty about uterine scar dehiscence. Patient had requested opportunistic risk reducing salpingectomy. That has been fully discussed in clinic patient understands surgical risks and potential complications that additional portion of the procedure. She fully understands that she will lose fertility with that procedure but is willing to except that in order to have the benefit and protection of the risk reducing salpingectomy. Surgical risk complication recovering follow-up have been fully discussed. Surgical crews and anesthesia have been called. MICHAEL MENJIVAR MD Jun 22, 2018 11:52 am
[2018-06-22] MEDS ORDERED: LACTATED RINGERS 1,000 ML IV ONE (12:10)
[2018-06-22] MEDS ORDERED: DEXAMETHASONE 10 MG/ML (DECADRON) 1 ML VIAL ONE (12:11)
[2018-06-22] MEDS ORDERED: ONDANSETRON 4 MG/2 ML (SDV) Z0FRAN ONE (12:11)
[2018-06-22] MEDS ORDERED: LIDOCAINE PF 2% 5 ML (XYLOCAINE) VIAL ONE (12:26)
[2018-06-22] MEDS ORDERED: KETOROLAC 30 MG/ML VIAL ONE (14:24)
[2018-06-22] MEDS: KETOROLAC 30 MG/ML VIAL IVP SCH ×2 (14:25→20:44)
[2018-06-22] MEDS ORDERED: OXYTOCIN/NORMAL SALINE 500 ML IV SCH (14:32)
[2018-06-22] MEDS ORDERED: PROMETHAZINE INJ 25 MG/ML (PHENERGAN) AMP IM PRN (14:45)
[2018-06-22] MEDS ORDERED: TETANUS,DIPTH,PERTUSS P/F (BOOSTRIX) 0.5 ML VIAL IM ONE (14:45)
[2018-06-22] MEDS ORDERED: ONDANSETRON 4 MG/2 ML (SDV) Z0FRAN IVP PRN (14:45)
[2018-06-22] MEDS ORDERED: MEPERIDINE (DEMEROL) INJ 100 MG/ML IM PRN (14:45)
[2018-06-22] MEDS ORDERED: MEASLES,MUMPS,RUBELLA 1 EA INJ SC ONE (14:45)
[2018-06-22] MEDS: oxyCODONE/APAP 10/325MG (PERCOCET 10) TABLET PO PRN (16:35)
--- NOTE | 2018-06-22 19:27 | OPERATIVE REPORT ---
DATE OF SERVICE: 06/22/2018 PREOPERATIVE DIAGNOSES: labor at 36-5/7 weeks' gestation with previous sections x2, -induced hypertension and developing preeclampsia as well as obesity and request for opportunistic risk reducing salpingectomy. POSTOPERATIVE DIAGNOSES: labor at 36-5/7 weeks' gestation with previous sections x2, -induced hypertension and developing preeclampsia as well as obesity and request for opportunistic risk reducing salpingectomy. OPERATIVE PROCEDURE: Repeat low transverse delivery of a viable female infant with Apgars of 6 and 7 at one and five minutes respectively, weight of 7 pounds 3 ounces, time of 12:25 and a cord blood pH was 7.25 as well as bilateral salpingectomies for reduction of lifetime risk for cancer. We also did a scar revision and removal of excess scar tissue in the abdominal wall. OPERATIVE DESCRIPTION: With the patient in the supine position and under satisfactory spinal anesthesia, she was prepped and draped in the usual fashion for abdominal surgery. Resendiz catheter was placed in the urinary bladder. A repeat Pfannenstiel incision was made through the skin by removing an ellipse of skin around the full width of the Pfannenstiel incision and vertically approximately 3.5-4 cm at the apex in the center line, removing that skin to remove the scar and exposing the very dense section scar in the midline at the intersection of her BMI and Pfannenstiel. The dissection was carried down to the fascia, which was then opened in the usual manner, elevated off the rectus muscles. The rectus muscles were in the midline. Peritoneum was entered. Bladder retractor placed into position and then a clean scalpel used to make a 4 cm hysterotomy incision transversely across the lower uterine segment that was extended by blunt dissection as well releasing copious clear fluid. A vigorous viable female was delivered via the uterine incision. was bulb suctioned on delivery of the head and again on completion of delivery. The stats were as noted above. The had a nuchal cord x1 and a shoulder cord x1 that was easily released. The umbilical cord was doubly clamped and cut and the passed to Dr. Chin, the inspector boiler in attendance for delivery. After obtaining cord blood, the placenta was delivered spontaneously Morales. It was normal with a 3-vessel cord. The uterus was exteriorized and interior was wiped clean with a wet laparotomy sponge. Uterine incision was then closed with a running locked suture of 2-0 Vicryl. Hemostasis was complete. Both fallopian tubes were then removed in the usual salpingectomy fashion undermining and dividing the mesosalpinx, cauterizing the vessels coursing through the mesosalpinx and then ligating proximally at the uterine cornu and distally at the fimbria ovarica removing the entire fallopian tube, labeled appropriately and sent it to pathology for permanent section. With hemostasis complete, the uterus was returned to abdominal cavity. All blood clot and debris was removed from the abdominal cavity. With sponge and needle counts correct and hemostasis assured, the anterior parietal peritoneum was then closed with a running locked suture of 2-0 Vicryl. Rectus muscles were closed with that suture as well. The fascia was closed with two sutures of 2-0 Vicryl. Additional scar tissue primarily in the midline was resected from the subcutaneous Susan and Camper fascial layers and from the adipose tissue with that scar tissue removed and the incision lying in line and approximating nicely, the subcutaneous tissue was then closed obliterating the space with 2-0 Vicryl suture and then the skin was stapled. Good cosmetic effect and good reapproximation and good hemostasis was achieved. Sponge and needle counts were correct on completion of the procedure. Estimated blood loss for procedure was around 300 mL. The patient tolerated the procedure well and was transferred to recovery room in stable condition. was taken stable to the full term nursery under the care of Dr. Chin. Job ID: [id number] DocumentID: [id number] Dictated Date: 06/22/2018 13:02:52 Laser Printing Operator Date: 06/22/2018 19:26:21 Dictated By: MICHAEL MENJIVAR MD
[2018-06-22] MEDS: DOCUSATE SODIUM 100 MG (COLACE) CAP PO SCH (20:45)
[2018-06-23] MEDS ORDERED: IBUPROFEN 800 MG (MOTRIN) TAB PO ONE ×2 (02:13→09:19)
[2018-06-23] MEDS: IBUPROFEN 800 MG (MOTRIN) TAB PO SCH ×2 (02:17→09:00)
[2018-06-23] MEDS: oxyCODONE/APAP 10/325MG (PERCOCET 10) TABLET PO PRN (02:17)
[2018-06-23 05:34] VITALS: BP 121/74
--- NOTE | 2018-06-23 08:06 | Progress Note-Standard ---
Standard Progress Note Progress Notes/Assess & Plan Date Seen by Provider: Jun 23, 2018 Time Seen by Provider: 08:05 Progress/Assessment & Plan This patient has continued to contract and now with more vigor and regularity. She complains of pressure and pain in the back and pelvis and of an intermittent tearing sensation above the pubic bone. She has continued to have spotting and bleeding. Decision made to proceed now with repeat delivery, due to labor/previous /uncertainty about uterine scar dehiscence. Patient had requested opportunistic risk reducing salpingectomy. That has been fully discussed in clinic patient understands surgical risks and potential complications that additional portion of the procedure. She fully understands that she will lose fertility with that procedure but is willing to except that in order to have the benefit and protection of the risk reducing salpingectomy. Surgical risk complication recovering follow-up have been fully discussed. Surgical crews and anesthesia have been called. June 23, 2018 Patient is without complaint. She is ambulating, voiding, tolerating oral intake well, has good pain control, and is requesting discharge home. Patient denies chest pain, denies shortness of breath, denies nausea vomiting, and denies headache area her baby was transferredP And is doing well there. Vital Signs 06/23/18 05:34 Temp 98.4 Pulse 71 Resp 18 B/P (MAP) 121/74 (90) Pulse Ox 98 O2 Delivery Room Air Vital signs are stable. Patient is afebrile. The abdomen is benign. The surgical incision is clean dry and intact. Extremities show no clubbing cyanosis. There is no Homans sign. Assessment and plan postoperative day number 1 status post repeat delivery doing well. Plan is for discharge home with follow-up in clinic Final Diagnosis repeat delivery 36-5/7 weeks' gestation MICHAEL MENJIVAR MD Jun 23, 2018 8:06 am
[2018-06-23] MEDS ORDERED: IBUP-1780 PO ×2 (08:08)
[2018-06-23] MEDS ORDERED: OXYC-465 PO ×2 (08:08)
[2018-06-23] MEDS ORDERED: DOCU100C37 PO ×2 (08:08)
--- NOTE | 2018-06-23 08:09 | Discharge Instructions ---
Discharge Instructions Discharge Medications New, Converted or Re-Newed RX: RX on Chart Patient Instructions Patient Instructions: As directed Return to The Hospital For: As directed Activity & Diet Discharge Diet: No Restrictions Activity as Tolerated: No Orders-Post D/C & Referrals Follow Up Appt: RTC on Monday, June 25, 2018 between 8 a.m. and 30 p.m. for incision check and staple removal. Call to make follow up appt. for patient in 4 weeks. Wound Care: Remove yvonne, apply benzoin and steri strips. Activity Per routine post instructions. Please call in RX to patient pharmacy. Diet as tolerated Patient may shower or tub bathe as desired. Continue home meds MICHAEL MENJIVAR MD Jun 23, 2018 8:09 am
[2018-06-23 09:00] VITALS: BP 146/94
[2018-06-23] MEDS: DOCUSATE SODIUM 100 MG (COLACE) CAP PO SCH (09:00)
== END 2018-06-23 10:40 | disposition home or self-care (01) | DRG 765 ==
LOC: WSo 03:45 → LDRP 03:46 → WSo 08:07 → LDRP 08:08
PROVIDERS: ADMIT Obstetrics & Gynecology; ATTEND Obstetrics & Gynecology
PROC: 0UT70ZZ Resection of Bilateral Fallopian Tubes, Open Approach (ICD-10-PCS; 2018-06-22)
PROC: 0JBC0ZZ Excision of Pelvic Region Subcutaneous Tissue and Fascia, Open Approach (ICD-10-PCS; 2018-06-22)
PROC: 10D00Z1 Extraction of Products of Conception, Low, Open Approach (ICD-10-PCS; principal; 2018-06-22 11:57)
DX: O60.14X0 Preterm labor third trimester with preterm delivery third trimester, not applicable or unspecified (principal); Z68.41 Body mass index [BMI] 40.0-44.9, adult; O34.211 Maternal care for low transverse scar from previous cesarean delivery; O24.429 Gestational diabetes mellitus in childbirth, unspecified control; O13.4 Gestational [pregnancy-induced] hypertension without significant proteinuria, complicating childbirth; O99.214 Obesity complicating childbirth; E66.9 Obesity, unspecified; Z40.03 Encounter for prophylactic removal of fallopian tube(s); Z3A.36 36 weeks gestation of pregnancy; Z37.0 Single live birth
CPT/HCPCS: 36415; 82570; 84156; 85025; 86850; 86900; 86901; 94664; 99212